=== PATIENT | male | born 1965 | race Caucasian/White ===

== ENCOUNTER 2016-09-02 23:06 | Inpatient (IN) ==
[2016-09-02] MEDS ORDERED: ONDANSETRON 4 MG/2 ML VIAL IV STA (23:38)
[2016-09-02] MEDS ORDERED: ASPIRIN 325 MG TABLET PO STA (23:38)
[2016-09-02] MEDS ORDERED: NITROGLYCERIN 2% OINT 1 INCH/GM PACK TOP STA (23:38)
[2016-09-02] MEDS ORDERED: MORPHINE 2 MG/1 ML SYRINGE IV STA (23:38)
[2016-09-02 23:50] LABS: Basophils # 0.1 10*3/uL (0.0-0.2); Basophils % 1.1 % (0.0-0.8); Eosinophils # 0.5 10*3/uL (0.0-0.87); Eosinophils % 4.9 % (0.00-10.9); Hematocrit 49.5 VOL% (42.0-52.0); Hemoglobin 17.3 GM/DL (14.0-18.0); Immature Granulocytes % 0.5 %; Immature Granulocytes Absolute 0.05 #; Lymphocytes # 3.6 10*3/uL (1.4-4.0); Mean Corpuscular HGB Conc 34.9 GM/DL (32-36); Mean Corpuscular Hemoglobin 33 PG (27-34); Mean Corpuscular Volume 95.2 FL (87-102); Mean Platelet Volume 12.1 FL (9.6-12.0); Monocytes % 10.6 % (1.7-12.7); Neutrophils # 4.2 10*3/uL (1.4-7.4); Neutrophils % 44.9 % (38.7-73.9); Platelet Count 247 T/CUMM (130-400); Red Cell Distribution Width 12.8 % (9.3-17.3); White Blood Count 9.4 T/CUMM (4-12)
[2016-09-02] MEDS ORDERED: ONDANSETRON 4 MG/2 ML VIAL ONE (23:53)
[2016-09-02] MEDS ORDERED: MORPHINE 2 MG/1 ML SYRINGE ONE (23:53)
[2016-09-02] MEDS ORDERED: NITROGLYCERIN 2% OINT 1 INCH/GM PACK TOP ONE (23:53)
[2016-09-02] MEDS ORDERED: ASPIRIN 325 MG TABLET ONE (23:53)
[2016-09-02 23:54] LABS: INR 1.1
--- NOTE | 2016-09-03 00:07 | Emergency Department Note ---
Humberto Slater Mantricia, am scribing for, and in the presence of, Adebayo Bey MD 23:43. Maida Slater Charles R, MD, personally performed the services described in this documentation, ascribed by Zachary Paul in my presence, and it is both accurate and complete . Arrival - Arrival Chief Complaint: Chest Pain ED Nursing Triage Note: C/O Chest pain. Onset earlier tonight. Pt was seen at [facility] for chest pain and was Dx with NSTEMI. Pt reports that he is currently painfree. Mode of Arrival: Stretcher Limitations: No Limitations Source: Patient Time Seen by Provider: 09/02/16 23:28 - History of Present Illness HPI Narrative: Pt is a 51 y/o white male arriving to the ED by EMS with c/o chest pain that onset earlier tonight. Pt reports moving a couch and he thought he pulled a muscle so he reported to [facility]. Pt was seen at [facility] for chest pain and was Dx with a NSTEMI. He states that he did not take his blood pressure medication this morning. He also denies smoking,N/V/D, and weakness when walking, but notes occasional ETOH consumption of beer. Pt reports he is currently pain-free. Onset (ago): hour(s) Consistency: now resolved Severity: mild Severity scale (1-10): 4 Allergies/Adverse Reactions: Allergies Allergy/AdvReac Type Severity Reaction Status Date / Time acetaminophen [From Percocet] AdvReac Intermediate Hallucinati Verified 23:14 ng Oxycodone [From Percocet] AdvReac Intermediate Hallucinati Verified 09/02/16 23: 14 ng Home Medications: Home Medications Medication Instructions Recorded Confirmed Type Unable To Obtain [Unable to Obtain] 09/02/16 09/02/16 History Review of System - Review of System 12 point system: reviewed and no additional remarkable complaints except as stated - Review of System Constitutional: Absent: chills, diaphoresis, fever Eyes: Absent: discharge, pain Head/Ears/Nose/Throat: Absent: earache Respiratory: Absent: cough Cardiovascular: Present: chest pain. Absent: palpitations, dyspnea on exertion Gastrointestinal: Absent: abdominal pain, nausea, vomiting Genitourinary male: Absent: dysuria Musculoskeletal: Absent: arm pain, back pain Skin: Absent: rash, lesions Neurological: Absent: headache, weakness Psychiatric: Absent: anxiety, depression Medical,Surgical,& Family Hx - Social History Smoking Status: Never smoker Frequency of Alcohol Use: None Type of Drug Use: None Exam Vital Signs: Vital Signs Temperature 98.7 F 09/02/16 23:06 Pulse Rate 64 09/02/16 23:06 Respiratory Rate 16 09/02/16 23:06 Blood Pressure 135/94 09/02/16 23:06 O2 Sat by Pulse Oximetry 98 09/02/16 23:06 - General General appearance: alert, in no apparent distress - Head Head exam: Present: atraumatic, normocephalic, normal inspection - Eye Eye exam: Present: normal appearance, PERRL, EOMI - ENT ENT exam: Present: normal exam, normal oropharynx, mucous membranes moist, TM's normal bilaterally, normal external ear exam - Neck Neck exam: Present: normal inspection, full ROM, trachea midline. Absent: tenderness - Chest Chest inspection: Present: normal inspection, symmetric chest wall rise. Absent : tenderness - Respiratory Respiratory exam: Present: normal lung sounds bilaterally - Cardiovascular Cardiovascular exam: Present: regular rate, normal rhythm, normal heart sounds - Abdominal Exam Abdominal exam: Present: soft, normal bowel sounds. Absent: distention, tenderness, guarding - Extremities Exam Extremities exam: Present: normal inspection, full ROM, normal capillary refill. Absent: tenderness, pedal edema - Back Exam Back exam: Present: normal inspection, full ROM. Absent: tenderness - Neurological Exam Neurological exam: Present: alert, oriented X3, CN II-XII intact, reflexes normal - Psychiatric Psychiatric exam: Present: normal affect, normal mood - Skin Skin exam: Present: warm, dry, intact, normal color Course - Consultations Consultation #1: Dr. Moore will admit patient Time: 00:06 Results - Labs CBC & BMP: 09/02/16 23:26 Lab Results: I have reviewed the patients labs Disposition Clinical Impression: Chest pain, Unstable angina pectoris, NSTEMI (non-ST elevated myocardial infarction) Case discussed with: patient, patient's family Disposition: Still a Patient Condition: Stable Time of Disposition: 00:07
[2016-09-03 00:17] LABS: Albumin 3.7 G/DL (3.4-5.0); Bilirubin,Total 0.6 MG/DL (0.2-1.0); Calcium 8.7 MG/DL (8.5-10.1); Magnesium 2.3 MG/DL (1.8-2.4); Osmolality,Calculated 279.4 MOS/KG (273-304); Potassium 4.4 MMOL/L (3.5-5.1); Total Protein 7.2 G/DL (6.4-8.3)
[2016-09-03] MEDS ORDERED: MAGNESIUM SULF RIDER 4 GM in PREMIX 1 EACH IV PRN (00:55)
[2016-09-03] MEDS ORDERED: SODIUM CHLORIDE 0.9% 1,000 ML IV SCH (00:55)
[2016-09-03] MEDS ORDERED: POTASSIUM CHLORIDE 20 MEQ TABLET PO PRN (00:55)
[2016-09-03] MEDS ORDERED: MAGNESIUM SULF RIDER 2 GM in PREMIX 1 EACH IV PRN ×3 (00:55→07:41)
[2016-09-03 01:33] LABS: Apearance,Urine CLEAR (Clear); Bacteria,Urine Occasional /HPF (Few); Bilirubin,Urine Negative (Negative); Blood, Urine Negative (Negative); Glucose,Urine (UA) Negative (Negative); Hyaline Casts,Urine 5 /LPF (0-3); Ketones,Urine Negative (Negative); Mucus,Urine Occasional /LPF (Occasional); Nitrite,Urine Negative (Negative); Protein,Urine Negative; RBC,Urine 1 /HPF (0-4); Squamous Epithelial Cell,Urine Occasional /HPF (0-10); Urine Color Yellow (Yellow); Urine Specific Gravity 1.028 (1.001-1.035); Urine Urobilinogen < 2.0 EU/DL (0.2-1.0); WBC,Urine 1 /HPF (0-6)
[2016-09-03 01:35] LABS: Barbiturates Screen,Urine Negative (Negative); Benzodiazepines Screen,Urine Negative (Negative); Cannabinoid Screen,Urine Negative (Negative); Opiate Screen,Urine Positive (Negative); Phencyclidine Screen,Urine Negative (Negative)
[2016-09-03 02:25] LABS: Basophils # 0.1 10*3/uL (0.0-0.2); Basophils % 0.8 % (0.0-0.8); Eosinophils # 0.4 10*3/uL (0.0-0.87); Eosinophils % 4.2 % (0.00-10.9); Hematocrit 47.3 VOL% (42.0-52.0); Hemoglobin 16.6 GM/DL (14.0-18.0); Immature Granulocytes % 0.7 %; Immature Granulocytes Absolute 0.07 #; Lymphocytes # 3.2 10*3/uL (1.4-4.0); Lymphocytes % 33.6 % (21.2-54.2); Mean Corpuscular HGB Conc 35.1 GM/DL (32-36); Mean Corpuscular Hemoglobin 33 PG (27-34); Mean Corpuscular Volume 95.2 FL (87-102); Mean Platelet Volume 11.5 FL (9.6-12.0); Monocytes # 1.1 10*3/uL (0.11-0.8); Monocytes % 11.9 % (1.7-12.7); Neutrophils # 4.7 10*3/uL (1.4-7.4); Neutrophils % 48.8 % (38.7-73.9); Platelet Count 237 T/CUMM (130-400); Red Blood Count 4.97 MC/CUMM (3.8-5.5); Red Cell Distribution Width 12.9 % (9.3-17.3); White Blood Count 9.6 T/CUMM (4-12)
[2016-09-03] MEDS ORDERED: ROSUVASTATIN 20 MG TABLET PO ONE ×2 (02:30→20:30)
[2016-09-03 03:08] LABS: CKMB % 10.9 %
[2016-09-03 03:12] LABS: Albumin 3.8 G/DL (3.4-5.0); Bilirubin,Total 0.6 MG/DL (0.2-1.0); Calcium 8.9 MG/DL (8.5-10.1); Magnesium 2.3 MG/DL (1.8-2.4); Osmolality,Calculated 274.7 MOS/KG (273-304); Potassium 4.8 MMOL/L (3.5-5.1); Risk Ratio 4.69; Thyroid Stimulating Hormone 6.29 uIU/ml (0.358-3.74); Total Protein 6.9 G/DL (6.4-8.3)
[2016-09-03 03:59] LABS: Troponin I Only 6.66 NG/ML (0.00-0.045)
[2016-09-03] MEDS: MORPHINE 2 MG/1 ML SYRINGE IV PRN ×2 (04:56→22:04)
[2016-09-03] MEDS: ONDANSETRON 4 MG/2 ML VIAL IV PRN ×2 (05:04→22:05)
[2016-09-03] MEDS: NITROGLYCERIN 2% OINT 1 INCH/GM PACK TOP SCH ×4 (05:23→23:20)
--- NOTE | 2016-09-03 06:17 | EKG Report ---
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
--- NOTE | 2016-09-03 06:18 | EKG Report ---
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
--- NOTE | 2016-09-03 06:29 | EKG Report ---
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
--- NOTE | 2016-09-03 07:00 | XRay Report ---
XR chest 1V portable Indication: Chest pain Comparison: 02 September 2016 at 9:10 PM Findings: The heart and mediastinum are normal in size and configuration. The pulmonary vascularity is normal in caliber. No lung infiltrates, effusions, pneumothorax or other abnormality is demonstrated. Impression: No acute findings or significant changes. PROCEDURE INTERPRETED AT [facility] DEPARTMENT OF RADIOLOGY Final Report Signed by: Dr. Cordell King
--- NOTE | 2016-09-03 07:19 | XRay Report ---
XR chest 2V Indication: Shortness of breath Comparison: 02 September 2016 Findings: The heart and mediastinum are stable in size and configuration. The pulmonary vascularity is normal in caliber. No lung infiltrates, effusions, pneumothorax or other abnormality is demonstrated. Impression: No acute cardiopulmonary disease. PROCEDURE INTERPRETED AT [facility] DEPARTMENT OF RADIOLOGY Final Report Signed by: Dr. Cordell King
[2016-09-03] MEDS ORDERED: POTASSIUM CHLORIDE RIDER 10 MEQ in PREMIX 1 EACH IV PRN ×2 (07:37→07:41)
[2016-09-03] MEDS ORDERED: diphenhydrAMINE CAP 25 MG CAPSULE PO ONE (07:41)
[2016-09-03] MEDS ORDERED: DIAZEPAM 5 MG TABLET PO ONE (07:41)
--- NOTE | 2016-09-03 07:42 | Cardiology History & Physical ---
Assessment and Plan (1) HTN (hypertension) Status: Acute Assessment and plan: 1. 51 year-old W exam oral tobacco use with hypertension and strong family history of CAD (brother at age 57, his father of heart attack in his late 70s) who is had intermittent episodes of chest pain over the last 5 days since lifting a heavy couch, which became associated with exertion during work yesterday p.m., with elevated troponin transferred here with non-STEMI 2. Chest pain resolved, but he has "a little throbbing" intermittently in his chest 3. / holosystolic murmur at the apex is noted suggesting mitral versus tricuspid regurgitation 4. Continuing Lovenox, statin, beta jany, and aspirin 5. Heart catheterization this morning is recommended. He is agreeable to this. We'll plan to use right groin access. I discussed with the patient arrest and benefits of heart catheterization including but not limited to: , stroke, heart attack, vascular damage, reaction to medicine or dye, bleeding requiring blood transfusion, failure the procedure, possible need for planned her emergency heart surgery. I have answered all the patient's questions and the patient is agreeable to proceed. Current Visit: Yes (2) NSTEMI (non-ST elevated myocardial infarction) Status: Acute Current Visit: Yes History of Present Illness Chief complaint: cp History of present illness: Mr. Rose is a 51 year old male with history of hypertension and oral tobacco use. He was lifting a couch with a family member 5 days ago, his phone number lost hold of the couch, and all the weight "went on me". He had chest discomfort associated with that. He has had chest pain off and on since that time. He has had it most minimal shortness of breath. He was having intermittently, but yesterday late afternoon it was occurring all during work when he did physical activity. This prompted her to the local emergency room where he is found to have elevated troponin and was transferred here for further care. He reports his chest pain went away but he has a heart "throbbing " off and on still. He has not had nausea vomiting or diaphoresis. At one point did radiate into his right shoulder. He has a strong family history of cardiac of CAD. Home Medications Medication Instructions Recorded Confirmed Type Unable To Obtain [Unable to Obtain] 09/02/16 09/02/16 History Allergies Allergy/AdvReac Type Severity Reaction Status Date / Time acetaminophen [From Percocet] AdvReac Intermediate Hallucinati Verified 23:14 ng Oxycodone [From Percocet] AdvReac Intermediate Hallucinati Verified 09/02/16 23: 14 ng Medical,Surgical,& Family Hx - Medical History Cardio: History of: Hypertension - Social History Smoking Status: Never smoker Frequency of Alcohol Use: Occasionally Type of Drug Use: None Cardiology Physical Exam - Constitutional Vitals: Vital Signs Temp Pulse Resp BP Pulse Ox 97.0 F L 66 20 145/99 98 09/03/16 07:36 09/03/16 07:36 09/03/16 07:36 09/03/16 07:36 09/03/16 07:36 Intake and Output 09/02/16 09/02/16 09/03/16 15:59 23:59 07:59 Other: # Voids 0 # Bowel Movements 0 Weight 92.561 kg Patient Weight 09/03/16 23:59 Weight 92.561 kg General appearance: normal weight, no acute distress - Head Head exam: Present: normal inspection, normocephalic, atraumatic - Neck Neck exam: Present: normal inspection - Respiratory Respiratory exam: Present: clear to auscultation bilaterally. Absent: stridor, wheezes - Cardiovascular Cardiovascular exam: Present: regular rate and rhythm, systolic murmur (2/6 systolic murmur at the apex which is holosystolic) - GI/Abdominal GI/Abdominal exam: Present: soft. Absent: tenderness, rebound - Extremities Exam Extremities exam: Absent: edema Result/EKG - Labs CBC & BMP: 09/03/16 02:18 09/03/16 02:18 Labs: Laboratory Results - last 24 hr 09/03/16 09/03/16 09/03/16 01:22 01:22 02:18 WBC 9.6 RBC 4.97 Hgb 16.6 Hct 47.3 MCV 95.2 MCH 33 MCHC 35.1 RDW 12.9 Plt Count 237 MPV 11.5 Neut % (Auto) 48.8 Lymph % (Auto) 33.6 Hill % (Auto) 11.9 Eos % (Auto) 4.2 Baso % (Auto) 0.8 Neut # (Auto) 4.7 Lymph # (Auto) 3.2 Hill # (Auto) 1.1 H Eos # (Auto) 0.4 Baso # (Auto) 0.1 Immature Gran % 0.7 Nucleated RBC % 0.0 Immature Gran # 0.07 Nucleated RBCs # 0.00 Sodium Potassium Chloride Carbon Dioxide Anion Gap BUN Creatinine GFR Calculation BUN/Creatinine Ratio Glucose Calculated Osmolality Calcium Magnesium Total Bilirubin AST ALT Alkaline Phosphatase Total Creatine Kinase CK-MB (CK-2) CK and CKMB Interp Troponin I B-Natriuretic Peptide Total Protein Albumin Globulin Albumin/Globulin Ratio Triglycerides Cholesterol LDL Cholesterol VLDL Cholesterol HDL Cholesterol Heart Disease Risk Ratio TSH 3rd Generation Urine Color Yellow Urine Appearance Clear Urine pH 5.0 Ur Specific Garrison 1.028 Urine Protein Negative Urine Glucose (UA) Negative Urine Ketones Negative Urine Blood Negative Urine Nitrate Negative Urine Bilirubin Negative Urine Urobilinogen < 2.0 H Urine Leukocytes Negative Urine RBC 1 Urine WBC 1 Ur Squamous Epith Cells Occasional Urine Bacteria Occasional Hyaline Casts 5 Urine Mucus Occasional Ur Culture Indicated? Not indicated Urine Opiates Screen Positive H Ur Barbiturates Screen Negative Ur Phencyclidine Scrn Negative U Amphetamine/Methamph Negative U Benzodiazepines Scrn Negative U Cocaine Metab Screen Negative U Cannabinoids Screen Negative 09/03/16 09/03/16 09/03/16 02:18 02:18 02:18 WBC RBC Hgb Hct MCV MCH MCHC RDW Plt Count MPV Neut % (Auto) Lymph % (Auto) Hill % (Auto) Eos % (Auto) Baso % (Auto) Neut # (Auto) Lymph # (Auto) Hill # (Auto) Eos # (Auto) Baso # (Auto) Immature Gran % Nucleated RBC % Immature Gran # Nucleated RBCs # Sodium 138 Potassium 4.8 Chloride 106 Carbon Dioxide 26 Anion Gap 10.8 BUN 16 Creatinine 1.30 GFR Calculation 78 BUN/Creatinine Ratio 12.00 Glucose 85 Calculated Osmolality 274.7 Calcium 8.9 Magnesium 2.3 Total Bilirubin 0.60 AST 60 H ALT 33 Alkaline Phosphatase 65 Total Creatine Kinase 383 H CK-MB (CK-2) 41.8 H CK and CKMB Interp 10.9 Troponin I 6.660 H D B-Natriuretic Peptide 368 H Total Protein 6.9 Albumin 3.8 Globulin 3.1 Albumin/Globulin Ratio 1.2 Triglycerides 105 Cholesterol 211 H LDL Cholesterol 152.0 VLDL Cholesterol 21.0 HDL Cholesterol 45 Heart Disease Risk Ratio 4.69 TSH 3rd Generation 6.290 H Urine Color Urine Appearance Urine pH Ur Specific Garrison Urine Protein Urine Glucose (UA) Urine Ketones Urine Blood Urine Nitrate Urine Bilirubin Urine Urobilinogen Urine Leukocytes Urine RBC Urine WBC Ur Squamous Epith Cells Urine Bacteria Hyaline Casts Urine Mucus Ur Culture Indicated? Urine Opiates Screen Ur Barbiturates Screen Ur Phencyclidine Scrn U Amphetamine/Methamph U Benzodiazepines Scrn U Cocaine Metab Screen U Cannabinoids Screen 09/03/16 05:56 WBC RBC Hgb Hct MCV MCH MCHC RDW Plt Count MPV Neut % (Auto) Lymph % (Auto) Hill % (Auto) Eos % (Auto) Baso % (Auto) Neut # (Auto) Lymph # (Auto) Hill # (Auto) Eos # (Auto) Baso # (Auto) Immature Gran % Nucleated RBC % Immature Gran # Nucleated RBCs # Sodium Potassium Chloride Carbon Dioxide Anion Gap BUN Creatinine GFR Calculation BUN/Creatinine Ratio Glucose Calculated Osmolality Calcium Magnesium Total Bilirubin AST ALT Alkaline Phosphatase Total Creatine Kinase CK-MB (CK-2) CK and CKMB Interp Troponin I 8.840 H D B-Natriuretic Peptide Total Protein Albumin Globulin Albumin/Globulin Ratio Triglycerides Cholesterol LDL Cholesterol VLDL Cholesterol HDL Cholesterol Heart Disease Risk Ratio TSH 3rd Generation Urine Color Urine Appearance Urine pH Ur Specific Garrison Urine Protein Urine Glucose (UA) Urine Ketones Urine Blood Urine Nitrate Urine Bilirubin Urine Urobilinogen Urine Leukocytes Urine RBC Urine WBC Ur Squamous Epith Cells Urine Bacteria Hyaline Casts Urine Mucus Ur Culture Indicated? Urine Opiates Screen Ur Barbiturates Screen Ur Phencyclidine Scrn U Amphetamine/Methamph U Benzodiazepines Scrn U Cocaine Metab Screen U Cannabinoids Screen
[2016-09-03] MEDS: PANTOPRAZOLE 40 MG TABLET PO SCH (08:18)
[2016-09-03] MEDS ORDERED: LIDOCAINE 1% 20 ML VIAL ONE (08:33)
[2016-09-03] MEDS ORDERED: HYDROmorphone 2 MG/1 ML VIAL ONE ×2 (08:36→10:15)
[2016-09-03] MEDS ORDERED: MIDAZOLAM 2 MG/2 ML VIAL ONE ×2 (08:36→09:32)
[2016-09-03] MEDS ORDERED: ASPIRIN EC 325 MG TABLET PO SCH (09:00)
[2016-09-03] MEDS ORDERED: METOPROLOL TARTRATE 25 MG TABLET PO SCH (09:00)
[2016-09-03] MEDS ORDERED: TIROFIBAN 5,000 MCG/100 ML PREMIX IV ONE (09:10)
[2016-09-03] MEDS ORDERED: ENOXAPARIN 60 MG/0.6 ML SYRINGE ONE ×2 (09:17→10:08)
[2016-09-03] MEDS ORDERED: TIROFIBAN 5,000 MCG/100 ML PREMIX IV SCH (09:19)
[2016-09-03] MEDS: ENOXAPARIN 100 MG/ML SYRINGE SUBCUT SCH ×2 (09:28→20:16)
[2016-09-03] MEDS ORDERED: diphenhydrAMINE 50 MG/1 ML VIAL ONE (09:41)
[2016-09-03] MEDS ORDERED: methylPREDNISolone SOD SUC 125 MG/2 ML VIAL ONE (10:19)
[2016-09-03] MEDS ORDERED: FAMOTIDINE 20 MG/2 ML VIAL IV ONE ×2 (10:22→10:34)
--- NOTE | 2016-09-03 10:50 | Cardiac Catheterization ---
Date of Procedure:: 09/03/16 Post-op diagnosis: same Procedure: Procedures performed: 1. Left heart catheterization 2. Coronary angiography 3. Left ventriculography 4. Failed attempt to cross proximal obtuse marginal occlusion 5. Right femoral arteriotomy with Angio-Seal device Brief clinical summary: Mr. Vera is a 51-year-old with non-STEMI and no previous chronic history. Description of procedure: After obtaining informed consent, the right groin was prepped and draped in the usual sterile fashion. Next a short 6 Irish sheath was placed in the right femoral artery using a modified Seldinger technique, after the patient received IV sedation and local anesthetic. Next a JL4 catheter was advanced over a guidewire under fluoroscopic guidance, and was engaged to the left coronary artery after which angiography was performed in multiple views. This was then removed over a wire, and a JR4 catheter was advanced in similar fashion was engaged the right coronary artery after which angiography was performed in multiple views. Next a bent pigtail catheter was advanced into the left ventricle, where hemodynamic measurements were obtained, left ventriculography was performed. Percutaneous coronary intervention wasn't performed as described below. After intervention, and angiogram of the sheath showed the sheath was inserted in the right common femoral artery in a vessel suitable for closure. Hemostasis was obtained with Angio-Seal device with no residual bleeding. He was transferred from the cathead worker in good condition without complication. Percutaneous coronary intervention: An EBU 3.5 guiding catheter was advanced is a bit oversized but I was able to engage left coronary artery was some difficulty and applied adequate support. Next a Prowater wire was advanced but I could not cross the proximal obtuse marginal occlusion. I then changed to a long Prowater wire which I advanced the distal circumflex with only moderate difficulty. I then advanced a 1.5 x 20 [id number] balloon [id number] and changed out for a PT Graphix angled long wire. Attempt to cross the occlusion without success. This was then removed, and I advanced a long Prowater with a venture catheter and try to directed down the OM without success. I felt further details were futile and to avoid further dye or radiation exposure no further attempts were made. Coronary angiography: The left main coronary artery is normal developed and free of disease. Left anterior descending artery is of average caliber and there is a 70-80% high mid LAD involving a 90% ostial diagonal lesion ( bifurcation lesion with large diagonal) there are no other significant diagonals the LAD wraps around the apex. The circumflex gives off a large OM1 with proximal occlusion. There is a tiny OM 2 occluded proximally, and there is a large than average on 3 branch which and the termination the vessel. The OM's filled by left to left collaterals. The right coronary artery is a dominant vessel and is averaging caliber. There is 60% mid disease, as well as a distal occlusion. The PDA seems to fill slowly by [id number] collaterals, and the at least average caliber PL fills by right to right collaterals. Left ventricular: Left ventricle Is normal in size and there is borderline overall LV systolic function with EF proximal to 45-50%. There is moderate inferior hypokinesis. Mitral regurgitation is difficult to assess this seems to be approximately 2+. Impression: 1. Borderline to mildly reduced overall LV systolic function with ejection fraction is be 45-50% with moderate inferior hypokinesis 2. Probably at least 2+ mitral regurgitation (difficult study) 3. Right dominant system 4. Three-vessel coronary artery disease as detailed above including but not limited to: A. 70-80% mid LAD stenosis involving a 90% ostial diagonal lesion (bifurcation lesion to large diagonal) B. 60% mid circumflex stenosis with occluded proximal OM (likely culprit, which is a long vessel nearly average in caliber) filling by left to left collaterals. C. 60% mid RCA disease with distal RCA occlusion; the PDA fills by left-to- right collaterals, and a fairly large posterior lateral fills by right to right collaterals 5. Failed attempt to open OM occlusion using a venture catheter oh (very tortuous anatomy) Recommendation discussion: I believe Mr. Vera is best served with bypass surgery. An echocardiogram has been ordered to evaluate his apical murmur. He'll be a candidate for significant ischemic mitral regurgitation giving compromise of all 3 vessels. I discussed the case with Dr. Be in the cathead worker. I will discontinue Aggrastat with a bottle is out and he'll be watched the CCU. Anesthesia: minimal conscious sedation Surgeon / Physician: Galileo Moore Independent Jeweler: other Estimated blood loss: minimal Specimens: none sent Condition: stable Disposition: floor - Medications / Follow-up
[2016-09-03] MEDS: ROSUVASTATIN 20 MG TABLET PO SCH (11:45)
[2016-09-03] MEDS: CARVEDILOL 3.125 MG TABLET PO SCH ×2 (11:46→20:16)
[2016-09-03] MEDS: ASPIRIN EC 81 MG TABLET PO SCH (11:46)
[2016-09-03 12:51] LABS: CKMB % 13.4 %
[2016-09-03 12:54] LABS: Troponin I Only 12.7 NG/ML (0.00-0.045)
--- NOTE | 2016-09-03 13:33 | EKG Report ---
Stationary ECG Study 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
--- NOTE | 2016-09-03 15:31 | ECHO Report ---
[facility] Exam Date: 09/03/2016 11:59 Referring Physician: Technologist: Ana Luisa Okeefe RDCS Age: 51 Ht (in): 73 Wt (lb): 204 Gender: M Exam Location: [facility] Echo Indications: Chest pain, unspecified, Non-ST elevation (NSTEMI) myocardial infarction, Essential (primary) hypertension, Elevated troponin, 2/6 holocystolic murmur BP: 146 / 100 HR: 67 Rhythm: Sinus Technical Quality: IMPRESSIONS 1-2+ left atrial enlargement Borderline to mildly reduced LV systolic function with ejection fraction estimated 45-50% with inferior hypokinesis Aortic sclerosis without stenosis 1-2+ aortic regurgitation 2+ eccentric mitral regurgitation 1+ tricuspid regurgitation with RV systolic pressure 28 mmHg plus RAP MEASUREMENTS (Male / Female) Normal Values 2D ECHO LV Diastolic Diameter PLAX 4.3 cm 4.2 - 5.9 / 3.9 - 5.3 cm LV Systolic Diameter PLAX 3.0 cm LV Fractional Shortening PLAX 29.7 % IVS Diastolic Thickness 1.0 cm 0.6 - 1.0 / 0.6 - 0.9 cm LVPW Diastolic Thickness 1.0 cm 0.6 - 1.0 / 0.6 - 0.9 cm RV Internal Dim ED PLAX 3.8 cm Aortic Root Diameter 3.1 cm LA Systolic Diameter LX 4.8 cm 3.0 - 4.0 / 2.7 - 3.8 cm DOPPLER TR Peak Velocity 263.0 cm/s TR Peak Gradient 27.7 mmHg FINDINGS Left Ventricle Normal left ventricular cavity size. Normal left ventricular wall thickness. Left ventricular ejection fraction is estimated at 50 %. Right Ventricle The right ventricle is normal in size and function. Right Atrium The right atrium is mildly enlarged. Left Atrium The left atrium is mildly enlarged. Mitral Valve Morphologically normal mitral valve. Mild mitral valve regurgitation. Aortic Valve Aortic valve sclerosis without stenosis. Trace to mild aortic valve regurgitation. Tricuspid Valve Morphologically normal tricuspid valve. Trace to mild tricuspid valve regurgitation. Tricuspid regurgitation velocities suggest a PAP of 38 mmHg. Pulmonic Valve Morphologically normal pulmonic valve without significant stenosis. There is no pulmonic regurgitation. Pericardium Normal pericardium without effusion. Aorta Normal ascending aorta dimension. Galileo Moore (Electronically Signed) Final Date: 03 September 2016 15:18
[2016-09-03 17:54] LABS: CKMB % 12.9 %
[2016-09-03 17:55] LABS: Troponin I Only 11.2 NG/ML (0.00-0.045)
[2016-09-04] MEDS: MORPHINE 2 MG/1 ML SYRINGE IV PRN ×2 (02:05→20:36)
[2016-09-04] MEDS: ONDANSETRON 4 MG/2 ML VIAL IV PRN ×2 (02:06→20:41)
[2016-09-04 05:14] LABS: Basophils % 0.1 % (0.0-0.8); Hematocrit 47.7 VOL% (42.0-52.0); Hemoglobin 16.5 GM/DL (14.0-18.0); Immature Granulocytes % 0.5 %; Lymphocytes # 1.8 10*3/uL (1.4-4.0); Lymphocytes % 8.5 % (21.2-54.2); Mean Corpuscular HGB Conc 34.6 GM/DL (32-36); Mean Corpuscular Hemoglobin 33 PG (27-34); Mean Corpuscular Volume 95.8 FL (87-102); Mean Platelet Volume 11.7 FL (9.6-12.0); Monocytes # 1.2 10*3/uL (0.11-0.8); Monocytes % 5.6 % (1.7-12.7); Neutrophils # 18.3 10*3/uL (1.4-7.4); Neutrophils % 85.3 % (38.7-73.9); Platelet Count 221 T/CUMM (130-400); Red Blood Count 4.98 MC/CUMM (3.8-5.5); Red Cell Distribution Width 12.8 % (9.3-17.3); White Blood Count 21.4 T/CUMM (4-12)
[2016-09-04 05:49] LABS: Magnesium 2.4 MG/DL (1.8-2.4); Osmolality,Calculated 279.7 MOS/KG (273-304); Potassium 4.6 MMOL/L (3.5-5.1)
[2016-09-04 05:54] LABS: CKMB % 12.3 %
[2016-09-04 05:57] LABS: Troponin I Only 6.77 NG/ML (0.00-0.045)
[2016-09-04 06:01] LABS: Total Cells Counted 100
[2016-09-04] MEDS: NITROGLYCERIN 2% OINT 1 INCH/GM PACK TOP SCH ×3 (06:10→17:15)
[2016-09-04 06:12] LABS: Band Neutrophils 4 % (0-10); Eosinophils 1 % (0-10); Lymphocytes 7 % (20-55); Segmented Neutrophils 83 % (50-85)
[2016-09-04 06:13] LABS: Anisocytosis 1+; Hypochromasia 1+; Platelet Estimate Normal
--- NOTE | 2016-09-04 07:31 | EKG Report ---
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
[2016-09-04] MEDS: ASPIRIN EC 81 MG TABLET PO SCH (08:16)
[2016-09-04] MEDS: CARVEDILOL 3.125 MG TABLET PO SCH ×2 (08:16→21:01)
[2016-09-04] MEDS: PANTOPRAZOLE 40 MG TABLET PO SCH (08:17)
[2016-09-04] MEDS: ENOXAPARIN 100 MG/ML SYRINGE SUBCUT SCH (08:18)
--- NOTE | 2016-09-04 09:18 | Cardiothoracic Progress Note ---
Cardiothoracic Subjective Interval history: Patient is a 51-year-old man who presents with acute onset of substernal chest discomfort. Urgent cardiac catheterization demonstrated severe three-vessel coronary disease with a totally occluded obtuse marginal coronary which may represent the infarct vessel. Patient's troponins peaked at around 12 and are trending downward. This should represent a relatively small injury and with the patient's significant additional coronary disease he probably is best treated with coronary bypass surgery. I discussed this in some detail with him and he agrees and we have tentatively planned surgery for Tuesday. Patient is to remain in the hospital in the interim which will give him some time to recover from his recent injury. From my standpoint I think he could be transferred out of the coronary care unit. Exam (Progress Note) - Constitutional Vitals: Period Temp Pulse Resp BP Sys/Scruggs Pulse Ox Last 24 Hr 97.2 F-98.1 F 67-93 11- 115-152/74-115 90-97 Result/EKG - Labs CBC & BMP: 09/04/16 05:05 09/04/16 05:06 Labs: Laboratory Results - last 24 hr 09/03/16 09/03/16 09/04/16 11:36 17:16 05:05 WBC 21.4 H D RBC 4.98 Hgb 16.5 Hct 47.7 MCV 95.8 MCH 33 MCHC 34.6 RDW 12.8 Plt Count 221 MPV 11.7 Neut % (Auto) 85.3 H Lymph % (Auto) 8.5 L [place] % (Auto) 5.6 Eos % (Auto) 0.0 Baso % (Auto) 0.1 Neut # (Auto) 18.3 H Lymph # (Auto) 1.8 [place] # (Auto) 1.2 H Eos # (Auto) 0.0 Baso # (Auto) 0.0 Total Counted 100 Immature Gran % 0.5 Nucleated RBC % 0.0 Immature Gran # 0.10 Segmented Neutrophils 83 Band Neutrophils 4 Lymphocytes 7 L Monocytes 5 Eosinophils 1 Nucleated RBCs # 0.00 Platelet Estimate Normal Hypochromasia 1+ Anisocytosis 1+ Sodium Potassium Chloride Carbon Dioxide Anion Gap BUN Creatinine GFR Calculation BUN/Creatinine Ratio Glucose Calculated Osmolality Calcium Magnesium Total Creatine Kinase 437 H 377 H CK-MB (CK-2) 58.6 H D 48.6 H D CK and CKMB Interp 13.4 12.9 Troponin I 12.700 H D 11.200 H 09/04/16 09/04/16 05:06 05:06 WBC RBC Hgb Hct MCV MCH MCHC RDW Plt Count MPV Neut % (Auto) Lymph % (Auto) [place] % (Auto) Eos % (Auto) Baso % (Auto) Neut # (Auto) Lymph # (Auto) [place] # (Auto) Eos # (Auto) Baso # (Auto) Total Counted Immature Gran % Nucleated RBC % Immature Gran # Segmented Neutrophils Band Neutrophils Lymphocytes Monocytes Eosinophils Nucleated RBCs # Platelet Estimate Hypochromasia Anisocytosis Sodium 138 Potassium 4.6 Chloride 105 Carbon Dioxide 23 Anion Gap 14.6 BUN 17 Creatinine 1.30 GFR Calculation 78 BUN/Creatinine Ratio 13.00 Glucose 148 H Calculated Osmolality 279.7 Calcium 9.0 Magnesium 2.4 Total Creatine Kinase 243 D CK-MB (CK-2) 29.8 H D CK and CKMB Interp 12.3 Troponin I 6.770 H D Specialty Discharge - Follow Up or Referrals
[2016-09-04] MEDS ORDERED: DEXTROSE 50% 25 GM/50 ML VIAL IV PRN (09:19)
[2016-09-04] MEDS ORDERED: GLUCAGON 1 MG VIAL IM PRN (09:19)
--- NOTE | 2016-09-04 11:22 | Cardiology Progress Note ---
Assessment and Plan (1) HTN (hypertension) Status: Acute Assessment and plan: 1. 51 year-old W exam oral tobacco use with hypertension and strong family history of CAD (brother at age 57, his father of heart attack in his late 70s) who is had intermittent episodes of chest pain over the last 5 days since lifting a heavy couch, which became associated with exertion during work yesterday p.m., with elevated troponin transferred here with non-STEMI 2. Chest pain resolved, but he has "a little throbbing" intermittently in his chest 3. 2/6 holosystolic murmur at the apex is noted suggesting mitral versus tricuspid regurgitation 4. Continuing Lovenox, statin, beta jany, and aspirin 5. Heart catheterization this morning is recommended. He is agreeable to this. We'll plan to use right groin access. I discussed with the patient arrest and benefits of heart catheterization including but not limited to: , stroke, heart attack, vascular damage, reaction to medicine or dye, bleeding requiring blood transfusion, failure the procedure, possible need for planned her emergency heart surgery. I have answered all the patient's questions and the patient is agreeable to proceed. September 04, 2016: 1. Status post non-STEMI, now chest pain-free with severe three-vessel coronary artery disease and borderline to mildly reduced LV systolic function with ejection fraction 45-50% 2. Continue low-dose beta jany and high-intensity statin and aspirin therapy 3. He was stable overnight and the unit; transferred to telemetry 4. CV surgery is planned CABG for next week Current Visit: Yes (2) NSTEMI (non-ST elevated myocardial infarction) Status: Acute Current Visit: Yes Cardiology - PN: Subj Interval history: Mr. Vera says that he had no trouble at night and is anxious to be transferred to telemetry. He has had no dysrhythmia chest pain or shortness of breath. He has no complaints his right groin access site. He is discussed surgery with Dr. Be already. Exam (Progress Note) - Constitutional Vitals: Period Temp Pulse Resp BP Sys/Scruggs Pulse Ox Last 24 Hr 97.2 F-98.1 F 67-93 11-22 115-152/74-115 90-97 General appearance: normal weight, no acute distress - Head Head exam: Present: normal inspection, normocephalic, atraumatic - Neck Neck exam: Present: normal inspection - Respiratory Respiratory exam: Present: clear to auscultation bilaterally. Absent: rhonchi, stridor, wheezes - Cardiovascular Cardiovascular exam: Present: regular rate and rhythm. Absent: diastolic murmur , rubs, systolic murmur - GI/Abdominal GI/Abdominal exam: Present: soft. Absent: tenderness - Extremities Exam Extremities exam: Present: other (right groin access without bleeding bruit or hematoma). Absent: edema - Neurological Exam Neurological exam: Present: alert, oriented X3, normal gait - Psychiatric Psychiatric exam: Present: normal affect Result/EKG - Labs CBC & BMP: 09/04/16 05:05 09/04/16 05:06 Labs: Laboratory Results - last 24 hr 09/03/16 09/03/16 09/04/16 11:36 17:16 05:05 WBC 21.4 H D RBC 4.98 Hgb 16.5 Hct 47.7 MCV 95.8 MCH 33 MCHC 34.6 RDW 12.8 Plt Count 221 MPV 11.7 Neut % (Auto) 85.3 H Lymph % (Auto) 8.5 L [place] % (Auto) 5.6 Eos % (Auto) 0.0 Baso % (Auto) 0.1 Neut # (Auto) 18.3 H Lymph # (Auto) 1.8 [place] # (Auto) 1.2 H Eos # (Auto) 0.0 Baso # (Auto) 0.0 Total Counted 100 Immature Gran % 0.5 Nucleated RBC % 0.0 Immature Gran # 0.10 Segmented Neutrophils 83 Band Neutrophils 4 Lymphocytes 7 L Monocytes 5 Eosinophils 1 Nucleated RBCs # 0.00 Platelet Estimate Normal Hypochromasia 1+ Anisocytosis 1+ Sodium Potassium Chloride Carbon Dioxide Anion Gap BUN Creatinine GFR Calculation BUN/Creatinine Ratio Glucose Calculated Osmolality Calcium Magnesium Total Creatine Kinase 437 H 377 H CK-MB (CK-2) 58.6 H D 48.6 H D CK and CKMB Interp 13.4 12.9 Troponin I 12.700 H D 11.200 H 09/04/16 09/04/16 05:06 05:06 WBC RBC Hgb Hct MCV MCH MCHC RDW Plt Count MPV Neut % (Auto) Lymph % (Auto) [place] % (Auto) Eos % (Auto) Baso % (Auto) Neut # (Auto) Lymph # (Auto) [place] # (Auto) Eos # (Auto) Baso # (Auto) Total Counted Immature Gran % Nucleated RBC % Immature Gran # Segmented Neutrophils Band Neutrophils Lymphocytes Monocytes Eosinophils Nucleated RBCs # Platelet Estimate Hypochromasia Anisocytosis Sodium 138 Potassium 4.6 Chloride 105 Carbon Dioxide 23 Anion Gap 14.6 BUN 17 Creatinine 1.30 GFR Calculation 78 BUN/Creatinine Ratio 13.00 Glucose 148 H Calculated Osmolality 279.7 Calcium 9.0 Magnesium 2.4 Total Creatine Kinase 243 D CK-MB (CK-2) 29.8 H D CK and CKMB Interp 12.3 Troponin I 6.770 H D Quality Measures - VTE Contraindication to Pharmacological VTE Prophylaxis: High Risk of Bleeding Specialty Discharge - Follow Up or Referrals
[2016-09-04] MEDS: SODIUM CHLORIDE 0.9% 1,000 ML IV SCH (13:24)
[2016-09-04] MEDS: ENOXAPARIN 40 MG/0.4 ML SYRINGE SUBCUT SCH (13:24)
[2016-09-04] MEDS: ROSUVASTATIN 20 MG TABLET PO SCH (13:29)
[2016-09-04] MEDS: VALSARTAN 80 MG TABLET PO SCH ×2 (13:30→21:01)
[2016-09-04] MEDS: CHLORHEXIDINE 0.12% ORAL RINSE 60 ML BOTTLE SWISH/SPIT SCH (21:02)
[2016-09-04] MEDS ORDERED: ASPIRIN 325 MG TABLET PO ONE (22:48)
[2016-09-04] MEDS ORDERED: MORPHINE 2 MG/1 ML SYRINGE IV ONE (22:48)
[2016-09-05] MEDS: NITROGLYCERIN 2% OINT 1 INCH/GM PACK TOP SCH ×4 (00:16→18:02)
[2016-09-05 06:39] LABS: Calcium 8.3 MG/DL (8.5-10.1); Magnesium 2.1 MG/DL (1.8-2.4); Potassium 4.6 MMOL/L (3.5-5.1)
[2016-09-05] MEDS: CARVEDILOL 3.125 MG TABLET PO SCH ×2 (08:12→21:05)
[2016-09-05] MEDS: ASPIRIN EC 81 MG TABLET PO SCH (08:12)
[2016-09-05] MEDS: PANTOPRAZOLE 40 MG TABLET PO SCH (08:12)
[2016-09-05] MEDS: ROSUVASTATIN 20 MG TABLET PO SCH (08:12)
[2016-09-05] MEDS: VALSARTAN 80 MG TABLET PO SCH ×2 (08:12→21:05)
[2016-09-05] MEDS: MORPHINE 2 MG/1 ML SYRINGE IV PRN ×4 (08:12→22:44)
--- NOTE | 2016-09-05 08:28 | Cardiothoracic Progress Note ---
Cardiothoracic Subjective Interval history: Patient is ready for surgery on Tuesday. Exam (Progress Note) - Constitutional Vitals: Period Temp Pulse Resp BP Sys/Scruggs Pulse Ox Last 24 Hr 96.8 F-98.3 F 62-91 17-20 136-167/95-112 96-98 Result/EKG - Labs CBC & BMP: 09/04/16 05:05 09/05/16 05:09 Labs: Laboratory Results - last 24 hr 09/05/16 05:09 Sodium 143 Potassium 4.6 Chloride 108 H Carbon Dioxide 28 Anion Gap 11.6 BUN 14 Creatinine 1.20 GFR Calculation 87 BUN/Creatinine Ratio 11.00 Glucose 86 Calculated Osmolality 284.0 Calcium 8.3 L Magnesium 2.1 Quality Measures - VTE Contraindication to Pharmacological VTE Prophylaxis: High Risk of Bleeding Specialty Discharge - Follow Up or Referrals
[2016-09-05] MEDS: IBUPROFEN 600 MG TABLET PO PRN (08:38)
--- NOTE | 2016-09-05 09:05 | Cardiology Progress Note ---
Assessment and Plan (1) HTN (hypertension) Status: Acute Assessment and plan: 1. 51 year-old W exam oral tobacco use with hypertension and strong family history of CAD (brother at age 57, his father of heart attack in his late 70s) who is had intermittent episodes of chest pain over the last 5 days since lifting a heavy couch, which became associated with exertion during work yesterday p.m., with elevated troponin transferred here with non-STEMI 2. Chest pain resolved, but he has "a little throbbing" intermittently in his chest 3. 2 holosystolic murmur at the apex is noted suggesting mitral versus tricuspid regurgitation 4. Continuing Lovenox, statin, beta jany, and aspirin 5. Heart catheterization this morning is recommended. He is agreeable to this. We'll plan to use right groin access. I discussed with the patient arrest and benefits of heart catheterization including but not limited to: , stroke, heart attack, vascular damage, reaction to medicine or dye, bleeding requiring blood transfusion, failure the procedure, possible need for planned her emergency heart surgery. I have answered all the patient's questions and the patient is agreeable to proceed. September 04, 2016: 1. Status post non-STEMI, now chest pain-free with severe three-vessel coronary artery disease and borderline to mildly reduced LV systolic function with ejection fraction 45-50% 2. Continue low-dose beta jany and high-intensity statin and aspirin therapy 3. He was stable overnight and the unit; transferred to telemetry 4. CV surgery is planned CABG for next week 09/05/2016: 1. Status post non-STEMI with three-vessel CAD, chest pain-free with EF 45-50% a catheterization 2. Persistent headache which has improved since discontinuing nitroglycerin yesterday 3. Hemodynamic was stable 4. Continue statin therapy as well as low-dose beta jany and baby aspirin 5. Awaiting CABG next week 6. Gradually increase walking home (he has not walked in the halls yet) Current Visit: Yes (2) NSTEMI (non-ST elevated myocardial infarction) Status: Acute Current Visit: Yes Cardiology - PN: Subj Interval history: Extremities doing well other than a headache which has improved since his nitroglycerin was removed yesterday for persistent headaches frontal area. He is not having any chest, shortness of breath palpitations or dizziness. Exam (Progress Note) - Constitutional Vitals: Period Temp Pulse Resp BP Sys/Scruggs Pulse Ox Last 24 Hr 96.8 F-98.3 F 62-91 18-20 136-167/95-112 96-98 General appearance: normal weight, no acute distress - Head Head exam: Present: normal inspection, normocephalic, atraumatic - Neck Neck exam: Present: normal inspection - Respiratory Respiratory exam: Present: clear to auscultation bilaterally. Absent: stridor, wheezes - Cardiovascular Cardiovascular exam: Present: regular rate and rhythm, systolic murmur. Absent : diastolic murmur, rubs - GI/Abdominal GI/Abdominal exam: Present: soft. Absent: tenderness - Extremities Exam Extremities exam: Absent: edema Result/EKG - Labs CBC & BMP: 09/04/16 05:05 09/05/16 05:09 Labs: Laboratory Results - last 24 hr 09/05/16 05:09 Sodium 143 Potassium 4.6 Chloride 108 H Carbon Dioxide 28 Anion Gap 11.6 BUN 14 Creatinine 1.20 GFR Calculation 87 BUN/Creatinine Ratio 11.00 Glucose 86 Calculated Osmolality 284.0 Calcium 8.3 L Magnesium 2.1 Quality Measures - VTE Contraindication to Pharmacological VTE Prophylaxis: High Risk of Bleeding Specialty Discharge - Follow Up or Referrals
[2016-09-05] MEDS: SODIUM CHLORIDE 0.9% 1,000 ML IV SCH (11:01)
[2016-09-05] MEDS: ENOXAPARIN 40 MG/0.4 ML SYRINGE SUBCUT SCH (11:05)
[2016-09-05] MEDS: CHLORHEXIDINE 0.12% ORAL RINSE 60 ML BOTTLE SWISH/SPIT SCH ×2 (11:05→21:07)
[2016-09-06] MEDS: NITROGLYCERIN 2% OINT 1 INCH/GM PACK TOP SCH ×5 (01:42→23:56)
[2016-09-06 05:47] LABS: Calcium 8.8 MG/DL (8.5-10.1); Osmolality,Calculated 277.5 MOS/KG (273-304); Potassium 4.3 MMOL/L (3.5-5.1)
--- NOTE | 2016-09-06 06:12 | Cardiothoracic Progress Note ---
Cardiothoracic Subjective Interval history: Patient ready for surgery on Tuesday. Exam (Progress Note) - Constitutional Vitals: Period Temp Pulse Resp BP Sys/Scruggs Pulse Ox Last 24 Hr 97.8 F-99.2 F 74-90 18-22 145-178/92-112 90-98 Result/EKG - Labs CBC & BMP: 09/04/16 05:05 09/06/16 04:33 Labs: Laboratory Results - last 24 hr 09/05/16 09/06/16 05:09 04:33 Sodium 143 139 Potassium 4.6 4.3 Chloride 108 H 103 Carbon Dioxide 28 27 Anion Gap 11.6 13.3 BUN 14 14 Creatinine 1.20 1.20 GFR Calculation 87 87 BUN/Creatinine Ratio 11.00 11.00 Glucose 86 92 Calculated Osmolality 284.0 277.5 Calcium 8.3 L 8.8 Magnesium 2.1 2.0 Quality Measures - VTE Contraindication to Pharmacological VTE Prophylaxis: High Risk of Bleeding Specialty Discharge - Follow Up or Referrals
--- NOTE | 2016-09-06 07:42 | XRay Report ---
XR chest 2V Indication: Coronary artery disease. Comparison: Chest x-ray 09/03/2016 Technique: PA and lateral chest x-ray was performed. Findings: The heart size is within normal limits. The mediastinal contour demonstrates no significant abnormality. The lungs are clear. Bones and soft tissues demonstrate no acute abnormality. Impression: 1. No active cardiopulmonary disease. 09/06/2016 7:39 AM PROCEDURE INTERPRETED AT [facility] DEPARTMENT OF RADIOLOGY Final Report Signed by: Dr. To Doll
[2016-09-06] MEDS: ASPIRIN EC 81 MG TABLET PO SCH (08:41)
[2016-09-06] MEDS: VALSARTAN 80 MG TABLET PO SCH ×2 (08:42→20:07)
[2016-09-06] MEDS: PANTOPRAZOLE 40 MG TABLET PO SCH (08:42)
[2016-09-06] MEDS: CARVEDILOL 3.125 MG TABLET PO SCH (08:42)
[2016-09-06] MEDS: ROSUVASTATIN 20 MG TABLET PO SCH (08:42)
[2016-09-06] MEDS: CHLORHEXIDINE 0.12% ORAL RINSE 60 ML BOTTLE SWISH/SPIT SCH ×2 (08:43→20:08)
[2016-09-06 09:19] LABS: Basophils # 0.1 10*3/uL (0.0-0.2); Basophils % 0.5 % (0.0-0.8); Eosinophils # 0.3 10*3/uL (0.0-0.87); Eosinophils % 2.8 % (0.00-10.9); Hematocrit 49.6 VOL% (42.0-52.0); Hemoglobin 17.2 GM/DL (14.0-18.0); Immature Granulocytes % 0.6 %; Immature Granulocytes Absolute 0.06 #; Lymphocytes # 2.1 10*3/uL (1.4-4.0); Lymphocytes % 20.5 % (21.2-54.2); Mean Corpuscular HGB Conc 34.7 GM/DL (32-36); Mean Corpuscular Hemoglobin 33 PG (27-34); Mean Corpuscular Volume 95.8 FL (87-102); Monocytes # 1.1 10*3/uL (0.11-0.8); Monocytes % 10.7 % (1.7-12.7); Neutrophils # 6.6 10*3/uL (1.4-7.4); Neutrophils % 64.9 % (38.7-73.9); Platelet Count 226 T/CUMM (130-400); Red Blood Count 5.18 MC/CUMM (3.8-5.5); Red Cell Distribution Width 12.5 % (9.3-17.3); White Blood Count 10.2 T/CUMM (4-12)
[2016-09-06] MEDS: SODIUM CHLORIDE 0.9% 1,000 ML IV SCH (09:45)
[2016-09-06] MEDS: ENOXAPARIN 40 MG/0.4 ML SYRINGE SUBCUT SCH ×2 (10:42→10:52)
[2016-09-06] MEDS: IBUPROFEN 600 MG TABLET PO PRN ×2 (12:19→19:39)
--- NOTE | 2016-09-06 14:04 | Cardiology Progress Note ---
<Diane Rodriguez - Last Filed: 09/06/16 14:23> Assessment and Plan (1) NSTEMI (non-ST elevated myocardial infarction) Status: Acute Assessment and plan: Patient is status post non-ST elevated myocardial infarction. After undergoing left heart catheterization with Dr. Moore he was noted to have triple-vessel disease. Dr. Be has been consulted and plans for CABG Tuesday. We will continue current plan of care at this time with beta-jany, lipid- lowering agent and aspirin. Further plan and addendum to follow per Dr. Jean. Current Visit: Yes (2) HTN (hypertension) Status: Acute Assessment and plan: I have increased patient's beta jany due to suboptimally controlled blood pressure. Will continue to adjust patient's medications as needed. Further plan and addendum to follow per Dr. Jean. 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 Rose, 51 year-old white male with history of oral tobacco use, hypertension and strong family history of CAD (brother at age 57, his father of heart attack in his late 70s) who has had intermittent episodes of chest pain over the last 5 days since lifting a heavy couch. He was transferred here from [facility] with non-STEMI. He underwent left heart catheterization the following impressions noted: Impression: 1. Borderline to mildly reduced overall LV systolic function with ejection fraction is be 45-50% with moderate inferior hypokinesis 2. Probably at least 2+ mitral regurgitation (difficult study) 3. Right dominant system 4. Three-vessel coronary artery disease as detailed above including but not limited to: A. 70-80% mid LAD stenosis involving a 90% ostial diagonal lesion ( bifurcation lesion to large diagonal) B. 60% mid circumflex stenosis with occluded proximal OM (likely culprit, which is a long vessel nearly average in caliber) filling by left to left collaterals. C. 60% mid RCA disease with distal RCA occlusion; the PDA fills by left-to- right collaterals, and a fairly large posterior lateral fills by right to right collaterals 5. Failed attempt to open OM occlusion using a venture catheter (very tortuous anatomy) Patient was transferred back to the telemetry unit in stable condition post heart catheterization. Dr. Be was then consulted, plan for CABG Tuesday. Echocardiogram was obtained to evaluate his atypical murmur. This revealed 1-2+ left atrial enlargement. Mildly reduced LV systolic dysfunction with ejection fraction of 45-50% with inferior hypokinesis. 1-2+ aortic regurgitation, 2+ eccentric mitral regurgitation and 1+ tricuspid regurgitation with RV systolic pressure of 20 mmHg. Patient is done well post heart catheterization without any complications. Right groin is soft without bleeding , hematoma and bruit. Distal pulses 2+. Patient denies chest pain, heaviness and tightness. He also denies shortness of breath and heart palpitations/heart racing. Labs are unremarkable this morning. Vital signs are stable. We will continue to monitor patient closely on telemetry and plan for CABG Tuesday with Dr. Be. Further plan and addendum to follow per Dr. Jean. Exam (Progress Note) - Constitutional Vitals: Period Temp Pulse Resp BP Sys/Scruggs Pulse Ox Last 24 Hr 97.9 F-99.3 F 74-90 18-22 140-178/85-112 90-98 General appearance: normal weight, no acute distress - Head Head exam: Present: normal inspection, normocephalic, atraumatic - Neck Neck exam: Present: normal inspection - Respiratory Respiratory exam: Present: clear to auscultation bilaterally. Absent: accessory muscle use, chest wall tenderness, rales, rhonchi, stridor, wheezes - Cardiovascular Cardiovascular exam: Present: regular rate and rhythm, systolic murmur. Absent : gallop, rubs - GI/Abdominal GI/Abdominal exam: Present: normal bowel sounds, soft. Absent: distended, firm , mass, tenderness - Extremities Exam Extremities exam: Present: normal inspection, normal capillary refill, other ( Normal upper and lower extremity pulses). Absent: calf tenderness, edema - Neurological Exam Neurological exam: Present: alert, oriented X3, normal gait - Psychiatric Psychiatric exam: Present: normal affect, normal mood - Skin Skin exam: Present: normal color, warm, dry. Absent: cyanosis Result/EKG - Labs CBC & BMP: 09/06/16 08:58 09/06/16 04:33 Lab Results: I have reviewed the past 24 hour labs Labs: Laboratory Results - last 24 hr 09/06/16 09/06/16 09/06/16 04:33 08:58 08:58 WBC 10.2 D RBC 5.18 Hgb 17.2 Hct 49.6 MCV 95.8 MCH 33 MCHC 34.7 RDW 12.5 Plt Count 226 MPV 12.0 Neut % (Auto) 64.9 Lymph % (Auto) 20.5 L [place] % (Auto) 10.7 Eos % (Auto) 2.8 Baso % (Auto) 0.5 Neut # (Auto) 6.6 Lymph # (Auto) 2.1 [place] # (Auto) 1.1 H Eos # (Auto) 0.3 Baso # (Auto) 0.1 Immature Gran % 0.6 Nucleated RBC % 0.0 Immature Gran # 0.06 Nucleated RBCs # 0.00 Sodium 139 Potassium 4.3 Chloride 103 Carbon Dioxide 27 Anion Gap 13.3 BUN 14 Creatinine 1.20 GFR Calculation 87 BUN/Creatinine Ratio 11.00 Glucose 92 Hemoglobin A1c 5.4 Calculated Osmolality 277.5 Calcium 8.8 Magnesium 2.0 Quality Measures - VTE Contraindication to Pharmacological VTE Prophylaxis: High Risk of Bleeding Specialty Discharge - Follow Up or Referrals <Glenny Jean - Last Filed: 09/06/16 20:50> Cardiology - PN: Subj Interval history: I personally interviewed and examined the patient, reviewed the chart and discussed medical decision-making with practitioner Michael. I have read this note and agree with the findings herein. We will increase the patient's beta jany and ARB. I will add hydralazine as needed for uncontrolled hypertension. Exam (Progress Note) - Constitutional Vitals: Period Temp Pulse Resp BP Sys/Scruggs Pulse Ox Last 24 Hr 97.5 F-99.3 F 68-90 18-20 140-178/85-112 90-100 Result/EKG - Labs CBC & BMP: 09/06/16 08:58 09/06/16 04:33 Labs: Laboratory Results - last 24 hr 09/06/16 09/06/16 09/06/16 04:33 08:58 08:58 WBC 10.2 D RBC 5.18 Hgb 17.2 Hct 49.6 MCV 95.8 MCH 33 MCHC 34.7 RDW 12.5 Plt Count 226 MPV 12.0 Neut % (Auto) 64.9 Lymph % (Auto) 20.5 L [place] % (Auto) 10.7 Eos % (Auto) 2.8 Baso % (Auto) 0.5 Neut # (Auto) 6.6 Lymph # (Auto) 2.1 [place] # (Auto) 1.1 H Eos # (Auto) 0.3 Baso # (Auto) 0.1 Immature Gran % 0.6 Nucleated RBC % 0.0 Immature Gran # 0.06 Nucleated RBCs # 0.00 Sodium 139 Potassium 4.3 Chloride 103 Carbon Dioxide 27 Anion Gap 13.3 BUN 14 Creatinine 1.20 GFR Calculation 87 BUN/Creatinine Ratio 11.00 Glucose 92 Hemoglobin A1c 5.4 Calculated Osmolality 277.5 Calcium 8.8 Magnesium 2.0
[2016-09-06] MEDS ORDERED: LACTULOSE 20 GM/30 ML UDCUP PO PRN (15:00)
[2016-09-06] MEDS: CARVEDILOL 6.25 MG TABLET PO SCH (20:07)
[2016-09-06] MEDS ORDERED: hydrALAZINE 20 MG/1 ML VIAL IV PRN (20:49)
[2016-09-07] MEDS: NITROGLYCERIN 2% OINT 1 INCH/GM PACK TOP SCH ×4 (05:01→23:54)
[2016-09-07 05:26] LABS: Basophils # 0.1 10*3/uL (0.0-0.2); Basophils % 0.6 % (0.0-0.8); Eosinophils # 0.6 10*3/uL (0.0-0.87); Eosinophils % 6.6 % (0.00-10.9); Hematocrit 47.4 VOL% (42.0-52.0); Hemoglobin 16.6 GM/DL (14.0-18.0); Lymphocytes # 2.6 10*3/uL (1.4-4.0); Lymphocytes % 26.7 % (21.2-54.2); Mean Corpuscular Hemoglobin 33 PG (27-34); Mean Platelet Volume 12.5 FL (9.6-12.0); Monocytes # 1.2 10*3/uL (0.11-0.8); Neutrophils # 5.1 10*3/uL (1.4-7.4); Neutrophils % 53.1 % (38.7-73.9); Platelet Count 221 T/CUMM (130-400); Red Blood Count 5.04 MC/CUMM (3.8-5.5); Red Cell Distribution Width 12.4 % (9.3-17.3); White Blood Count 9.6 T/CUMM (4-12)
[2016-09-07 05:51] LABS: Calcium 8.8 MG/DL (8.5-10.1); Magnesium 2.2 MG/DL (1.8-2.4); Osmolality,Calculated 277.4 MOS/KG (273-304); Potassium 4.5 MMOL/L (3.5-5.1)
--- NOTE | 2016-09-07 06:34 | Cardiothoracic Progress Note ---
Cardiothoracic Subjective Interval history: Patient ready for surgery in the morning. Exam (Progress Note) - Constitutional Vitals: Period Temp Pulse Resp BP Sys/Scruggs Pulse Ox Last 24 Hr 96.8 F-99.3 F 68-79 16-20 138-172/85-112 94-100 Result/EKG - Labs CBC & BMP: 09/07/16 04:34 09/07/16 04:35 Labs: Laboratory Results - last 24 hr 09/06/16 09/06/16 09/07/16 08:58 08:58 04:34 WBC 10.2 D 9.6 RBC 5.18 5.04 Hgb 17.2 16.6 Hct 49.6 47.4 MCV 95.8 94.0 MCH 33 33 MCHC 34.7 35.0 RDW 12.5 12.4 Plt Count 226 221 MPV 12.0 12.5 H Neut % (Auto) 64.9 53.1 Lymph % (Auto) 20.5 L 26.7 [place] % (Auto) 10.7 12.0 Eos % (Auto) 2.8 6.6 Baso % (Auto) 0.5 0.6 Neut # (Auto) 6.6 5.1 Lymph # (Auto) 2.1 2.6 [place] # (Auto) 1.1 H 1.2 H Eos # (Auto) 0.3 0.6 Baso # (Auto) 0.1 0.1 Immature Gran % 0.6 1.0 Nucleated RBC % 0.0 0.0 Immature Gran # 0.06 0.10 Nucleated RBCs # 0.00 0.00 Sodium Potassium Chloride Carbon Dioxide Anion Gap BUN Creatinine GFR Calculation BUN/Creatinine Ratio Glucose Hemoglobin A1c 5.4 Calculated Osmolality Calcium Magnesium 09/07/16 04:35 WBC RBC Hgb Hct MCV MCH MCHC RDW Plt Count MPV Neut % (Auto) Lymph % (Auto) [place] % (Auto) Eos % (Auto) Baso % (Auto) Neut # (Auto) Lymph # (Auto) [place] # (Auto) Eos # (Auto) Baso # (Auto) Immature Gran % Nucleated RBC % Immature Gran # Nucleated RBCs # Sodium 140 Potassium 4.5 Chloride 105 Carbon Dioxide 28 Anion Gap 11.5 BUN 13 Creatinine 1.10 GFR Calculation 96 BUN/Creatinine Ratio 11.00 Glucose 89 Hemoglobin A1c Calculated Osmolality 277.4 Calcium 8.8 Magnesium 2.2 Quality Measures - VTE Contraindication to Pharmacological VTE Prophylaxis: High Risk of Bleeding Specialty Discharge - Follow Up or Referrals
[2016-09-07] MEDS ORDERED: LORazepam 1 MG TABLET PO ONE (08:11)
[2016-09-07] MEDS ORDERED: PANTOPRAZOLE 40 MG TABLET PO ONE (08:11)
[2016-09-07] MEDS: VALSARTAN 80 MG TABLET PO SCH (08:31)
[2016-09-07] MEDS: ROSUVASTATIN 20 MG TABLET PO SCH (08:31)
[2016-09-07] MEDS: CARVEDILOL 6.25 MG TABLET PO SCH (08:32)
[2016-09-07] MEDS: ASPIRIN EC 81 MG TABLET PO SCH (08:32)
[2016-09-07] MEDS: PANTOPRAZOLE 40 MG TABLET PO SCH (08:32)
[2016-09-07] MEDS: CHLORHEXIDINE 0.12% ORAL RINSE 60 ML BOTTLE SWISH/SPIT SCH ×2 (08:37→20:45)
[2016-09-07] MEDS ORDERED: CEFUROXIME INJ 1,500 MG in SODIUM CHLORIDE 0.9% 100 ML IV ONE (09:19)
[2016-09-07] MEDS: SODIUM CHLORIDE 0.9% 1,000 ML IV SCH (09:28)
[2016-09-07] MEDS: ENOXAPARIN 40 MG/0.4 ML SYRINGE SUBCUT SCH (10:30)
--- NOTE | 2016-09-07 10:31 | Cardiology Progress Note ---
Assessment and Plan (1) Coronary artery disease Status: Acute Assessment and plan: He is scheduled to undergo coronary artery bypass grafting tomorrow with Dr. Be. Current Visit: Yes (2) NSTEMI (non-ST elevated myocardial infarction) Status: Resolved Current Visit: Yes (3) HTN (hypertension) Status: Chronic Assessment and plan: We will continue to adjust his antihypertensives. Current Visit: Yes Cardiology - PN: Subj Interval history: Evening was uneventful. He denies any chest pain or shortness. He is doing all. Blood pressure is better controlled. Exam (Progress Note) - Constitutional Vitals: Period Temp Pulse Resp BP Sys/Scruggs Pulse Ox Last 24 Hr 96.8 F-98.4 F 68-79 16-20 138-172/85-112 94-100 Exam: General appearance: normal weight, no acute distress - Head Head exam: Present: normal inspection, normocephalic, atraumatic. Absent: hematoma, laceration - Eye Eye exam: Present: EOMI. Absent: conjunctival injection, nystagmus, periorbital swelling, scleral icterus, laceration to eyelids Pupils: Present: PERRL. Absent: constricted, dilated, fixed, irregular, unequal - ENT ENT exam: Present: normal exam, normal external ear exam - Neck Neck exam: Present: normal inspection. Absent: lymphadenopathy, meningismus, tenderness, thyromegaly - Respiratory Respiratory exam: Present: clear to auscultation bilaterally. Absent: accessory muscle use, chest wall tenderness - Cardiovascular Cardiovascular exam: Present: regular rate and rhythm. Absent: carotid bruit, gallop, JVD, rubs - GI/Abdominal GI/Abdominal exam: Present: normal bowel sounds, soft. Absent: distended, firm , guarding, hernia, mass, tenderness, rebound. - Extremities Exam Extremities exam: Present: normal inspection, normal capillary refill. Absent: calf tenderness, edema - Back Exam Back exam: Present: normal inspection. Absent: muscle spasm, vertebral tenderness - Neurological Exam Neurological exam: Present: alert, oriented X3, grossly intact without resting or intention tremor - Psychiatric Psychiatric exam: Present: normal affect, normal mood - Skin Skin exam: Present: normal color, warm, dry, intact. Absent: cyanosis, diaphoretic, rash, urticaria Result/EKG - Labs CBC & BMP: 09/07/16 04:34 09/07/16 04:35 Lab Results: I have reviewed the past 24 hour labs Labs: Laboratory Results - last 24 hr 09/07/16 09/07/16 09/07/16 04:34 04:35 04:35 WBC 9.6 RBC 5.04 Hgb 16.6 Hct 47.4 MCV 94.0 MCH 33 MCHC 35.0 RDW 12.4 Plt Count 221 MPV 12.5 H Neut % (Auto) 53.1 Lymph % (Auto) 26.7 [place] % (Auto) 12.0 Eos % (Auto) 6.6 Baso % (Auto) 0.6 Neut # (Auto) 5.1 Lymph # (Auto) 2.6 [place] # (Auto) 1.2 H Eos # (Auto) 0.6 Baso # (Auto) 0.1 Immature Gran % 1.0 Nucleated RBC % 0.0 Immature Gran # 0.10 Nucleated RBCs # 0.00 Sodium 140 Potassium 4.5 Chloride 105 Carbon Dioxide 28 Anion Gap 11.5 BUN 13 Creatinine 1.10 GFR Calculation 96 BUN/Creatinine Ratio 11.00 Glucose 89 Calculated Osmolality 277.4 Calcium 8.8 Magnesium 2.2 Blood Type A POSITIVE Antibody Screen Negative Crossmatch See Detail 09/07/16 Unknown WBC RBC Hgb Hct MCV MCH MCHC RDW Plt Count MPV Neut % (Auto) Lymph % (Auto) [place] % (Auto) Eos % (Auto) Baso % (Auto) Neut # (Auto) Lymph # (Auto) [place] # (Auto) Eos # (Auto) Baso # (Auto) Immature Gran % Nucleated RBC % Immature Gran # Nucleated RBCs # Sodium Potassium Chloride Carbon Dioxide Anion Gap BUN Creatinine GFR Calculation BUN/Creatinine Ratio Glucose Calculated Osmolality Calcium Magnesium Blood Type A POSITIVE Antibody Screen Crossmatch Quality Measures - VTE Contraindication to Pharmacological VTE Prophylaxis: High Risk of Bleeding Specialty Discharge - Follow Up or Referrals
[2016-09-07] MEDS: CHLORHEXIDINE 4% SOLN 118 ML BOTTLE TOP SCH ×3 (12:09→20:45)
[2016-09-07] MEDS: IBUPROFEN 600 MG TABLET PO PRN (12:34)
[2016-09-07] MEDS: CARVEDILOL 12.5 MG TABLET PO SCH (20:42)
[2016-09-08 04:39] LABS: ABG Base Excess -0.4 MMOL/L (-2.5-2.5); ABG HCO3 21.3 MMOL/L (20-26); ABG Oxygen Saturation 97.8 % (95-100); ABG PCO2 28.7 MM HG (35-48); ABG PH 7.489 (7.35-7.45); ABG PO2 98.9 MM HG (80-95); ABG TCO2 22.2 MMOL/L (23-27); Allen Test Positive; Pt O2 Delivery Device Room Air
[2016-09-08] MEDS ORDERED: PAPAVERINE 60 MG/2 ML VIAL ONE (04:44)
[2016-09-08] MEDS ORDERED: TISSUE ADHESIVE 1 EACH APPLICATOR TOP ONE (04:44)
[2016-09-08] MEDS ORDERED: VANCOMYCIN 1,000 MG VIAL ONE (04:45)
[2016-09-08] MEDS: CHLORHEXIDINE 0.12% ORAL RINSE 60 ML BOTTLE SWISH/SPIT SCH ×3 (05:06→20:47)
[2016-09-08] MEDS: CHLORHEXIDINE 4% SOLN 118 ML BOTTLE TOP SCH ×2 (05:06→10:21)
[2016-09-08] MEDS ORDERED: FAMOTIDINE 20 MG TABLET PO ONE (05:30)
[2016-09-08] MEDS ORDERED: LORazepam 1 MG TABLET PO ONE (05:30)
[2016-09-08 05:37] LABS: Basophils # 0.1 10*3/uL (0.0-0.2); Basophils % 0.5 % (0.0-0.8); Eosinophils # 0.7 10*3/uL (0.0-0.87); Eosinophils % 6.6 % (0.00-10.9); Hematocrit 51.7 VOL% (42.0-52.0); Hemoglobin 17.7 GM/DL (14.0-18.0); Immature Granulocytes % 1.3 %; Immature Granulocytes Absolute 0.14 #; Lymphocytes # 2.9 10*3/uL (1.4-4.0); Lymphocytes % 26.8 % (21.2-54.2); Mean Corpuscular HGB Conc 34.2 GM/DL (32-36); Mean Corpuscular Hemoglobin 33 PG (27-34); Mean Corpuscular Volume 95.9 FL (87-102); Monocytes # 1.2 10*3/uL (0.11-0.8); Monocytes % 11.4 % (1.7-12.7); Neutrophils # 5.7 10*3/uL (1.4-7.4); Neutrophils % 53.4 % (38.7-73.9); Platelet Count 272 T/CUMM (130-400); Red Blood Count 5.39 MC/CUMM (3.8-5.5); Red Cell Distribution Width 12.2 % (9.3-17.3); White Blood Count 10.7 T/CUMM (4-12)
[2016-09-08] MEDS: PANTOPRAZOLE 40 MG TABLET PO SCH ×2 (05:46→10:21)
[2016-09-08] MEDS: CARVEDILOL 12.5 MG TABLET PO SCH ×2 (05:46→10:20)
[2016-09-08] MEDS: NITROGLYCERIN 2% OINT 1 INCH/GM PACK TOP SCH ×2 (05:46→13:16)
[2016-09-08] MEDS: ROSUVASTATIN 20 MG TABLET PO SCH ×2 (05:46→10:20)
[2016-09-08] MEDS: VALSARTAN 80 MG TABLET PO SCH ×2 (05:46→10:20)
[2016-09-08 05:48] LABS: PT Patient Result 10.6 SECS; Partial Thromboplastin Time 30.1 SECS (0-40)
[2016-09-08] MEDS ORDERED: CEFUROXIME INJ 1,500 MG in SODIUM CHLORIDE 0.9% 100 ML IV ONE (06:00)
[2016-09-08 06:14] LABS: Calcium 8.8 MG/DL (8.5-10.1); Magnesium 2.2 MG/DL (1.8-2.4); Osmolality,Calculated 278.4 MOS/KG (273-304); Potassium 4.3 MMOL/L (3.5-5.1)
[2016-09-08] MEDS ORDERED: LIDOCAINE 1% 5 ML VIAL ONE (06:46)
[2016-09-08] MEDS ORDERED: PHENYLEPHRINE 1 MG/10 ML SYRINGE IV ONE (06:46)
[2016-09-08] MEDS ORDERED: VECURONIUM 10 MG VIAL IV ONE (06:46)
[2016-09-08] MEDS ORDERED: AMIODARONE 150 MG/3 ML VIAL ONE (06:46)
[2016-09-08] MEDS ORDERED: ETOMIDATE 20 MG/10 ML VIAL IV ONE (06:46)
[2016-09-08] MEDS ORDERED: AMINOCAPROIC ACID 5,000 MG/20 ML VIAL IV ONE (06:46)
[2016-09-08] MEDS ORDERED: CALCIUM CHLORIDE 1,000 MG/10 ML SYRINGE IV ONE ×2 (06:46→09:45)
[2016-09-08] MEDS ORDERED: MINERAL OIL/PETROLATUM OPH OINT 3.5 GM TUBE ONE (06:46)
[2016-09-08 07:28] LABS: ABG Base Excess -1.7 MMOL/L (-2.5-2.5); ABG Oxygen Saturation 99.6 % (95-100); ABG PCO2 36.3 MM HG (35-48); ABG TCO2 18.7 MMOL/L (23-27); Glucose Heart Surgery 105 MG/DL (74-106); Hematocrit Heart Surgery 50.2 PERCENT (42-52); Hemoglobin Heart Surgery 16.4 G/DL (14.0-18.0); Ionized Calcium Arterial 1.15 MMOL/L (1.21-1.46); PCO2 Patient Temp Arterial 36.3 MMHG; Patient Temperature 37 CELCIUS; Potassium Heart/CVR 3.8 MMOL/L (3.5-5.1); Sodium Heart/CVR 135 MMOL/L (135-145)
[2016-09-08 07:47] LABS: Apearance,Urine CLEAR (Clear); Bilirubin,Urine Negative (Negative); Blood, Urine Small mg/dL (Negative); Glucose,Urine (UA) Negative (Negative); Ketones,Urine Negative (Negative); Mucus,Urine Occasional /LPF (Occasional); Nitrite,Urine Negative (Negative); Protein,Urine Negative; RBC,Urine 1 /HPF (0-4); Urine Color Yellow (Yellow); WBC,Urine <1 /HPF (0-6)
--- NOTE | 2016-09-08 07:52 | Anesthesia Procedures ---
Anesthesia Procedures - Arterial Line Consent obtained arterial line: written consent Time out performed arterial line: Yes Size (Gauge): 20 Technique used arterial line: guide wire technique Post-Procedure: line sutured into place, dry sterile dressing placed Patient tolerated procedure arterial line: well Complications art line: none Site: right, radial (no comps)
--- NOTE | 2016-09-08 07:54 | Anesthesia Procedures ---
Anesthesia Procedures - Central Venous Insert Monitors Applied: pulse oximetry, BP cuff, oxygen via MSBT: pulse oximetry, EKG, BP cuff, oxygen via Procedure: after sterile technique was performed as outlined above, , ultrasound guidance was used to identify vessel, 16G introducer needle was passed into vessel under direct visualizatio, triple lumen catheter was passed over guidewire without difficulty, catheter sutured into place and the ports flushed with NS/hepflush, sterlie dressing applied including the antibiotic disc , vital signs were stable throughout procedure, no apparent complications were noted, CXR to be obtained and read Ultrasound used: identify patency vessel, visualize needle entry to vessel Vein Cannulated: right internal juglar, other (Chloroprep, MSTB, el well, no comps)
[2016-09-08 08:56] LABS: Hematocrit Heart Surgery 36.7 PERCENT (42-52); Hemoglobin Heart Surgery 11.9 G/DL (14.0-18.0); PH Patient Temp Venous 7.402; PO2 Patient Temp Venous 41.3 MM HG; Potassium Heart/CVR 4.5 MMOL/L (3.5-5.1); VBG HCO3 22.5 MEQ/L (24-28); VBG Oxygen Saturation 81.8 %; VBG PCO2 39.6 MMHG (41-51); VBG PH 7.373; VBG PO2 47.5 MMHG (17-40)
[2016-09-08 09:27] LABS: Hematocrit Heart Surgery 39.6 PERCENT (42-52); Hemoglobin Heart Surgery 12.9 G/DL (14.0-18.0); PCO2 Patient Temp Venous 32.4 MM HG; PH Patient Temp Venous 7.423; PO2 Patient Temp Venous 39.4 MM HG; Potassium Heart/CVR 5.4 MMOL/L (3.5-5.1); VBG Base Excess -2.6 MEQ/L (0-4); VBG Oxygen Saturation 82.9 %; VBG PCO2 37.4 MMHG (41-51); VBG PH 7.38; VBG PO2 48.5 MMHG (17-40)
[2016-09-08] MEDS ORDERED: EPINEPHrine 1 MG/10 ML SYRINGE ONE (09:45)
[2016-09-08] MEDS ORDERED: ALBUMIN 5% 12.5 GM/250 ML VIAL IV ONE (09:45)
[2016-09-08] MEDS ORDERED: SODIUM BICARBONATE 50 MEQ/50 ML SYRINGE IV ONE ×2 (09:45→11:00)
[2016-09-08] MEDS ORDERED: POTASSIUM CHLORIDE RIDER 100 ML IV ONE (09:45)
[2016-09-08] MEDS ORDERED: LIDOCAINE 100 MG/5 ML SYRINGE ONE (09:45)
[2016-09-08] MEDS ORDERED: ATROPINE 1 MG/10 ML SYRINGE ONE (09:45)
[2016-09-08] MEDS ORDERED: NITROPRUSSIDE 50 MG/2 ML VIAL ONE (09:46)
[2016-09-08] MEDS ORDERED: PHENYLEPHRINE DRIP 40 MG/250 ML PREMIX IV ONE (09:46)
[2016-09-08] MEDS ORDERED: HEPARIN/NACL 0.9% 2 UNITS/ML 500 ML IV ONE (09:53)
[2016-09-08 10:10] LABS: Hematocrit Heart Surgery 35.9 PERCENT (42-52); Hemoglobin Heart Surgery 11.6 G/DL (14.0-18.0); PCO2 Patient Temp Venous 35.1 MM HG; PH Patient Temp Venous 7.407; PO2 Patient Temp Venous 36.6 MM HG; VBG Base Excess -2.1 MEQ/L (0-4); VBG HCO3 22.2 MEQ/L (24-28); VBG PCO2 36.8 MMHG (41-51); VBG PH 7.393; VBG PO2 39.3 MMHG (17-40)
[2016-09-08] MEDS: ASPIRIN EC 81 MG TABLET PO SCH (10:20)
[2016-09-08] MEDS: SODIUM CHLORIDE 0.9% 1,000 ML IV SCH (10:21)
[2016-09-08 10:59] LABS: ABG Base Excess -3.2 MMOL/L (-2.5-2.5); ABG HCO3 21.8 MMOL/L (20-26); ABG Oxygen Saturation 99.2 % (95-100); ABG PCO2 40.9 MM HG (35-48); ABG PH 7.345 (7.35-7.45); ABG TCO2 19.7 MMOL/L (23-27); Glucose Heart Surgery 159 MG/DL (74-106); Hematocrit Heart Surgery 39.6 PERCENT (42-52); Hemoglobin Heart Surgery 12.9 G/DL (14.0-18.0); Ionized Calcium Arterial 1.32 MMOL/L (1.21-1.46); PCO2 Patient Temp Arterial 40.9 MMHG; PH Patient Temp Arterial 7.345; Patient Temperature 37 CELCIUS; Potassium Heart/CVR 3.7 MMOL/L (3.5-5.1); Sodium Heart/CVR 132 MMOL/L (135-145)
[2016-09-08] MEDS ORDERED: MANNITOL 12.5 GM/50 ML VIAL IV ONE (11:00)
[2016-09-08] MEDS ORDERED: PROTAMINE SULFATE 250 MG/25 ML VIAL IV ONE (11:00)
[2016-09-08] MEDS ORDERED: HEPARIN 10,000 UNIT/10 ML VIAL ONE (11:00)
[2016-09-08] MEDS ORDERED: DEXTROSE 5% KCL 20 MEQ 20 MEQ/1,000 ML BAG IV ONE (11:00)
[2016-09-08] MEDS ORDERED: ALBUMIN 25% 25 GM/100 ML VIAL IV ONE (11:00)
[2016-09-08] MEDS ORDERED: MAGNESIUM SULFATE 1 GM/2 ML VIAL ONE (11:00)
[2016-09-08] MEDS ORDERED: methylPREDNISolone SOD SUC 1,000 MG/8 ML VIAL ONE (11:00)
[2016-09-08] MEDS ORDERED: PHENYLEPHRINE DRIP 20 MG/250 ML PREMIX IV ONE (11:00)
[2016-09-08] MEDS ORDERED: FUROSEMIDE 20 MG/2 ML VIAL ONE (11:00)
[2016-09-08] MEDS ORDERED: THROMBIN TOPICAL (RECOMBINANT) 5,000 UNIT VIAL TOP ONE (11:19)
[2016-09-08] MEDS ORDERED: AMIODARONE 450 MG/9 ML VIAL IV ONE (11:44)
[2016-09-08] MEDS ORDERED: MIDAZOLAM 10 MG/2 ML VIAL IV PRN (12:04)
[2016-09-08] MEDS ORDERED: CALCIUM CHLORIDE 1,000 MG/10 ML SYRINGE IV PRN (12:04)
[2016-09-08] MEDS ORDERED: PHENYLEPHRINE DRIP 40 MG/250 ML PREMIX IV PRN (12:04)
[2016-09-08] MEDS ORDERED: LACTATED RINGERS 250 ML IV PRN (12:04)
[2016-09-08] MEDS ORDERED: INSULIN REGULAR 100 UNIT/ML IV PRN (12:04)
[2016-09-08] MEDS ORDERED: NITROPRUSSIDE 100 MG in DEXTROSE 5% 250 ML IV PRN (12:04)
[2016-09-08] MEDS ORDERED: ACETAMINOPHEN 650 MG SUPP RECTAL PRN (12:04)
[2016-09-08] MEDS ORDERED: DEXTROSE 50% 25 GM/50 ML VIAL IV PRN ×2 (12:04)
[2016-09-08] MEDS ORDERED: MAGNESIUM SULF RIDER 4 GM in PREMIX 1 EACH IV PRN (12:04)
[2016-09-08] MEDS ORDERED: VECURONIUM 10 MG VIAL IV PRN (12:04)
[2016-09-08] MEDS ORDERED: ONDANSETRON 4 MG/2 ML VIAL IV PRN (12:04)
[2016-09-08] MEDS ORDERED: MAGNESIUM SULF RIDER 2 GM in PREMIX 1 EACH IV PRN (12:04)
[2016-09-08] MEDS ORDERED: INSULIN REGULAR 100 UNIT/ML IV ONE (12:04)
[2016-09-08] MEDS: SODIUM CHLORIDE 0.45% 1,000 ML IV SCH (12:05)
[2016-09-08] MEDS ORDERED: MIDAZOLAM 10 MG/2 ML VIAL ONE ×2 (12:05→12:06)
[2016-09-08] MEDS ORDERED: SEVOFLURANE 1 UNIT/15 MINUTE INH ONE (12:05)
[2016-09-08] MEDS ORDERED: SUFentanil 250 MCG/5 ML AMP ONE (12:05)
[2016-09-08] MEDS ORDERED: SODIUM CHLORIDE 0.9% 250 ML IV ONE (12:06)
[2016-09-08] MEDS ORDERED: LACTATED RINGERS 1,000 ML IV ONE (12:06)
[2016-09-08] MEDS ORDERED: SODIUM CHLORIDE 0.9% 1,000 ML IV ONE (12:06)
[2016-09-08] MEDS ORDERED: PROTAMINE SULFATE 50 MG/5 ML VIAL IV ONE ×2 (12:11→13:08)
--- NOTE | 2016-09-08 12:12 | Operative Note ---
Date of procedure: 09/08/16 Pre-op diagnosis: Coronary artery disease Post-op diagnosis: same Procedure: Procedure: Coronary bypass grafting 4 with a left internal mammary graft to the anterior descending coronary artery saphenous vein grafts to the diagonal circumflex marginal and the right posterior lateral coronary artery. Findings: Patient is a 51-year-old man who presented with an acute myocardial infarction and cardiac catheterization demonstrating critical three-vessel coronary disease. The patient was referred for bypass surgery after recovery from his infarction. This time of surgery left ventricular function was noted to be essentially within normal limits. An internal mammary graft was placed to the anterior descending coronary artery and saphenous vein grafts to the diagonal to the circumflex marginal and to the right posterior lateral coronary arteries. Patient tolerated the procedure well and returned to recovery in satisfactory condition. All distal vessels were of adequate size and free of disease at the site of anastomosis. Procedure: Patient was brought to the operating room placed on the operating table in the supine position. After satisfactory induction of general anesthesia the chest abdomen and legs were prepped and draped in sterile fashion. Greater saphenous vein was harvested from each lower leg prepared is an arterial graft. Incisions in the leg were closed with 3-0 subcutaneous Monocryl and 3-0 subcuticular Monocryl. Standard sternotomy incision was made and the sternum was divided and the heart suspended in a pericardial cradle. Left internal mammary artery was dissected free and prepared as an arterial graft. Patient was prepared for cardiopulmonary bypass with systemic heparinization cannulation of the ascending aorta and right atrium. Cardiopulmonary bypass was begun in the aorta was crossclamped and the heart arrested with cardioplegia solution injected into the aortic root. Heart was protected during the period of crossclamping with topical saline slush. Distal anastomoses were constructed as noted above and then the aorta was unclamped reestablishing cardiac action. Proximal anastomoses were constructed between the ascending aorta and the inflow end of the saphenous vein grafts. Following completion of these the patient was weaned from cardiopulmonary bypass without difficulty. Heparin effect was reversed with protamine and decannulation carried out with a defects in the ascending aorta and right atrium closed with 3 -0 Prolene. Operative field was inspected for hemostasis and this was considered adequate the incision was closed with interrupted stainless steel wire and the sternum 0 Monopril in the presternal fascia and 3-0 subcuticular Monocryl. Chest tubes were left in the left hemithorax and 2 chest tubes in the anterior mediastinum and all were brought out through separate stab incisions. Sterile dressings were applied the patient was returned to recovery in satisfactory condition. Anesthesia: FRANKLIN Surgeon / Physician: Silviano Be Estimated blood loss: other (Unable to determine because of cardiopulmonary bypass) Condition: stable Disposition: ICU Results - Labs CBC & BMP: 09/08/16 10:55 09/08/16 05:00 Discharge Plan - Discharge Medications No Action No Known Home Medications [No Known Home Medications] - Follow Up or Referral - Forms/Instructions Instructions: Myocardial Infarction (GEN), Coronary Artery Disease (GEN), Left Heart Catheterization (DC), Heart Healthy Diet (GEN)
[2016-09-08] MEDS: LACTATED RINGERS 1,000 ML IV PRN ×4 (12:23→16:37)
[2016-09-08] MEDS ORDERED: INSULIN REGULAR DRIP 100 ML IV SCH (12:30)
[2016-09-08] MEDS ORDERED: SODIUM CHLORIDE 0.45% 1,000 ML IV SCH (12:30)
[2016-09-08 12:34] LABS: ABG Base Excess -2.5 MMOL/L (-2.5-2.5); ABG HCO3 22.3 MMOL/L (20-26); ABG Oxygen Saturation 98.3 % (95-100); ABG PCO2 36.6 MM HG (35-48); ABG PH 7.386 (7.35-7.45); ABG TCO2 18.9 MMOL/L (23-27); Glucose Heart Surgery 134 MG/DL (74-106); Hematocrit Heart Surgery 44.1 PERCENT (42-52); Hemoglobin Heart Surgery 14.4 G/DL (14.0-18.0); Potassium Heart/CVR 3.7 MMOL/L (3.5-5.1)
[2016-09-08 12:35] LABS: Basophils % 0.3 % (0.0-0.8); Eosinophils # 0.2 10*3/uL (0.0-0.87); Eosinophils % 1.6 % (0.00-10.9); Hematocrit 40.5 VOL% (42.0-52.0); Immature Granulocytes % 1.3 %; Immature Granulocytes Absolute 0.18 #; Lymphocytes # 1.8 10*3/uL (1.4-4.0); Lymphocytes % 12.6 % (21.2-54.2); Mean Corpuscular HGB Conc 34.8 GM/DL (32-36); Mean Corpuscular Hemoglobin 33 PG (27-34); Mean Platelet Volume 11.5 FL (9.6-12.0); Monocytes # 0.9 10*3/uL (0.11-0.8); Monocytes % 6.3 % (1.7-12.7); Neutrophils # 11.2 10*3/uL (1.4-7.4); Neutrophils % 77.9 % (38.7-73.9); Red Cell Distribution Width 12.1 % (9.3-17.3)
[2016-09-08 12:45] LABS: INR 1.2; PT Patient Result 12.8 SECS; Partial Thromboplastin Time 31.5 SECS (0-40)
[2016-09-08] MEDS: ALBUMIN 5% 12.5 GM in PREMIX 1 EACH IV PRN ×3 (13:06→16:26)
[2016-09-08] MEDS: KETOROLAC 30 MG/1 ML VIAL IV SCH ×2 (13:07→18:48)
[2016-09-08 13:09] LABS: Hemoglobin 14.1 GM/DL (14.0-18.0); Platelet Count 190 T/CUMM (130-400); Red Blood Count 4.22 MC/CUMM (3.8-5.5); White Blood Count 14.4 T/CUMM (4-12)
[2016-09-08] MEDS: POTASSIUM CHLORIDE RIDER 20 MEQ in PREMIX 1 EACH IV PRN ×3 (13:12→18:16)
[2016-09-08] MEDS: ENOXAPARIN 40 MG/0.4 ML SYRINGE SUBCUT SCH (13:16)
[2016-09-08 13:18] LABS: CKMB % 8.4 %
[2016-09-08 13:20] LABS: Troponin I Only 9.6 NG/ML (0.00-0.045)
--- NOTE | 2016-09-08 13:31 | XRay Report ---
XR chest 1V portable Indication: Line placement. Comparison: Chest x-ray 09/06/2016. Technique: Portable AP chest was performed. Findings: This been interval sternotomy. The heart size is stable. Sternal wires, chest tubes, mediastinal drains, [place] catheter tip in the right pulmonary artery, endotracheal tube tip at the sternoclavicular junction, NG tube terminating within the stomach, and right IJ central venous catheter present. Atelectatic change of the left lower lobe is suggested. Lungs otherwise are clear. Heart size is stable. Impression: 1. Interval sternotomy. Left lower lobe atelectatic change is suggested. 09/08/2016 1:28 PM PROCEDURE INTERPRETED AT [facility] DEPARTMENT OF RADIOLOGY Final Report Signed by: Dr. To Doll
[2016-09-08 13:39] LABS: Albumin 2.7 G/DL (3.4-5.0); Bilirubin,Total 0.7 MG/DL (0.2-1.0); Calcium 8.9 MG/DL (8.5-10.1); Magnesium 2.3 MG/DL (1.8-2.4); Osmolality,Calculated 281.4 MOS/KG (273-304); Total Protein 5.2 G/DL (6.4-8.3)
[2016-09-08] MEDS: POTASSIUM CHLORIDE RIDER 10 MEQ in PREMIX 1 EACH IV PRN ×2 (14:11→15:27)
[2016-09-08 14:39] LABS: ABG Base Excess -4.3 MMOL/L (-2.5-2.5); ABG HCO3 20.9 MMOL/L (20-26); ABG Oxygen Saturation 99.3 % (95-100); ABG TCO2 17.4 MMOL/L (23-27); Glucose Heart Surgery 155 MG/DL (74-106); Hematocrit Heart Surgery 44.4 PERCENT (42-52); Hemoglobin Heart Surgery 14.5 G/DL (14.0-18.0); Potassium Heart/CVR 4.6 MMOL/L (3.5-5.1)
[2016-09-08] MEDS: MIDAZOLAM 2 MG/2 ML VIAL IV PRN ×4 (14:43→16:52)
[2016-09-08] MEDS: VECURONIUM 10 MG VIAL IV PRN ×2 (15:07→16:52)
[2016-09-08 16:19] LABS: ABG Base Excess -3.5 MMOL/L (-2.5-2.5); ABG HCO3 20.1 MMOL/L (20-26); ABG Oxygen Saturation 96.7 % (95-100); ABG PCO2 32.2 MM HG (35-48); ABG PH 7.413 (7.35-7.45); ABG PO2 91.4 MM HG (80-95); ABG TCO2 21.1 MMOL/L (23-27); Glucose Heart Surgery 136 MG/DL (74-106); Hemoglobin Heart Surgery 13.5 G/DL (14.0-18.0); Potassium Heart/CVR 4.2 MMOL/L (3.5-5.1)
[2016-09-08] MEDS ORDERED: PROPOFOL 1,000 MG/100 ML BOTTLE IV ONE (17:46)
[2016-09-08] MEDS ORDERED: PROPOFOL 1,000 MG/100 ML BOTTLE IV SCH (18:00)
[2016-09-08 18:07] LABS: ABG Base Excess -4.2 MMOL/L (-2.5-2.5); ABG HCO3 20.8 MMOL/L (20-26); ABG Oxygen Saturation 91.1 % (95-100); ABG PCO2 41.6 MM HG (35-48); ABG PH 7.324 (7.35-7.45); ABG PO2 65.8 MM HG (80-95); ABG TCO2 19.3 MMOL/L (23-27); Glucose Heart Surgery 180 MG/DL (74-106); Hematocrit Heart Surgery 38.6 PERCENT (42-52); Hemoglobin Heart Surgery 12.6 G/DL (14.0-18.0); Potassium Heart/CVR 4.2 MMOL/L (3.5-5.1)
[2016-09-08] MEDS: CEFUROXIME INJ 1,500 MG in SODIUM CHLORIDE 0.9% 100 ML IV SCH (19:35)
[2016-09-08] MEDS: MORPHINE 2 MG/1 ML SYRINGE IV PRN (20:07)
[2016-09-08 20:13] LABS: ABG Base Excess -4.5 MMOL/L (-2.5-2.5); ABG HCO3 20.7 MMOL/L (20-26); ABG Oxygen Saturation 98.5 % (95-100); ABG PCO2 35.9 MM HG (35-48); ABG PH 7.359 (7.35-7.45); Glucose Heart Surgery 167 MG/DL (74-106); Hematocrit Heart Surgery 49.5 PERCENT (42-52); Hemoglobin Heart Surgery 16.2 G/DL (14.0-18.0); Potassium Heart/CVR 4.5 MMOL/L (3.5-5.1)
[2016-09-08 20:39] LABS: CKMB % 8.6 %
[2016-09-08 20:44] LABS: ABG Base Excess -3.9 MMOL/L (-2.5-2.5); ABG HCO3 21.2 MMOL/L (20-26); ABG Oxygen Saturation 98.9 % (95-100); ABG PCO2 33.8 MM HG (35-48); ABG PH 7.386 (7.35-7.45); ABG TCO2 17.8 MMOL/L (23-27); Glucose Heart Surgery 167 MG/DL (74-106); Potassium Heart/CVR 4.5 MMOL/L (3.5-5.1)
[2016-09-08 20:44] LABS: Troponin I Only 11.3 NG/ML (0.00-0.045)
[2016-09-08] MEDS: MORPHINE 10 MG/1 ML VIAL IV PRN (21:16)
[2016-09-08 21:53] LABS: ABG Base Excess -4.4 MMOL/L (-2.5-2.5); ABG HCO3 20.8 MMOL/L (20-26); ABG Oxygen Saturation 97.8 % (95-100); ABG PCO2 37.7 MM HG (35-48); ABG PH 7.349 (7.35-7.45); ABG TCO2 18.2 MMOL/L (23-27); Glucose Heart Surgery 163 MG/DL (74-106); Hematocrit Heart Surgery 40.1 PERCENT (42-52); Potassium Heart/CVR 4.4 MMOL/L (3.5-5.1)
[2016-09-08 22:24] LABS: ABG Base Excess -3.9 MMOL/L (-2.5-2.5); ABG HCO3 21.2 MMOL/L (20-26); ABG Oxygen Saturation 97.6 % (95-100); ABG PCO2 35.6 MM HG (35-48); ABG PH 7.374 (7.35-7.45); ABG PO2 99.2 MM HG (80-95); ABG TCO2 18.2 MMOL/L (23-27); Glucose Heart Surgery 160 MG/DL (74-106); Hematocrit Heart Surgery 39.4 PERCENT (42-52); Hemoglobin Heart Surgery 12.8 G/DL (14.0-18.0); Potassium Heart/CVR 4.4 MMOL/L (3.5-5.1)
[2016-09-08] MEDS ORDERED: FUROSEMIDE 40 MG/4 ML VIAL IV ONE (22:28)
[2016-09-08] MEDS ORDERED: FUROSEMIDE 40 MG/4 ML VIAL ONE (22:29)
[2016-09-09] MEDS: KETOROLAC 30 MG/1 ML VIAL IV SCH ×4 (00:41→19:16)
[2016-09-09] MEDS: MORPHINE 2 MG/1 ML SYRINGE IV PRN ×2 (00:41→13:26)
[2016-09-09 04:27] LABS: ABG Base Excess -2.2 MMOL/L (-2.5-2.5); ABG HCO3 21.5 MMOL/L (20-26); ABG Oxygen Saturation 95.7 % (95-100); ABG PCO2 33.6 MM HG (35-48); ABG PH 7.423 (7.35-7.45); ABG PO2 82.2 MM HG (80-95); ABG TCO2 22.5 MMOL/L (23-27); Glucose Heart Surgery 112 MG/DL (74-106); Hemoglobin Heart Surgery 13.3 G/DL (14.0-18.0); Potassium Heart/CVR 4.1 MMOL/L (3.5-5.1)
[2016-09-09 04:34] LABS: Basophils % 0.1 % (0.0-0.8); Hematocrit 35.9 VOL% (42.0-52.0); Hemoglobin 12.6 GM/DL (14.0-18.0); Immature Granulocytes % 0.7 %; Immature Granulocytes Absolute 0.14 #; Lymphocytes # 1.2 10*3/uL (1.4-4.0); Mean Corpuscular HGB Conc 35.1 GM/DL (32-36); Mean Corpuscular Hemoglobin 33 PG (27-34); Mean Platelet Volume 12.7 FL (9.6-12.0); Monocytes # 1.2 10*3/uL (0.11-0.8); Neutrophils # 17.1 10*3/uL (1.4-7.4); Neutrophils % 87.2 % (38.7-73.9); Platelet Count 177 T/CUMM (130-400); Red Blood Count 3.78 MC/CUMM (3.8-5.5); Red Cell Distribution Width 12.4 % (9.3-17.3); White Blood Count 19.6 T/CUMM (4-12)
[2016-09-09] MEDS: POTASSIUM CHLORIDE RIDER 20 MEQ in PREMIX 1 EACH IV PRN (04:42)
[2016-09-09 05:21] LABS: Albumin 3.3 G/DL (3.4-5.0); Bilirubin,Direct 0.2 MG/DL (0.0-0.20); Bilirubin,Total 0.6 MG/DL (0.2-1.0); Calcium 8.3 MG/DL (8.5-10.1); Osmolality,Calculated 280.4 MOS/KG (273-304); Potassium 4.3 MMOL/L (3.5-5.1); Total Protein 5.8 G/DL (6.4-8.3)
[2016-09-09 05:48] LABS: CKMB % 10.3 %
[2016-09-09 05:49] LABS: Troponin I Only 28.3 NG/ML (0.00-0.045)
--- NOTE | 2016-09-09 06:17 | XRay Report ---
XR chest 1V portable Indication: Status post removal of chest tube. Comparison: Chest x-ray 09/08/2016 Technique: Portable AP chest was performed. Findings: Chest tubes appear stable in number and position. Minimal atelectatic change of the left lung base is present subsegmental atelectasis left lower lobe is unchanged. Interval extubation has occurred. NG tube no longer present. Impression: 1. No adverse interval change in chest status post extubation. 09/09/2016 6:13 AM PROCEDURE INTERPRETED AT [facility] DEPARTMENT OF RADIOLOGY Final Report Signed by: Dr. To Doll
--- NOTE | 2016-09-09 07:53 | EKG Report ---
Stationary ECG Study [facility] Test Date: 09/09/2016 7:53:10 AM Pat Name: JORGE TIMMONS Department: Room: 104 Gender: M Site Administrator: CYNDY : 1965 Requested by: Silviano Chan Order Number: [id number] Kevin MD: JANEEN MCMAHON Intervals [place] Rate: 96 P: 4 OK: 136 QRS: 52 QRSD: 110 T: -28 QT: 357 QTc: 410 Interpretive Statements SINUS RHYTHM PROBABLE INFERIOR MYOCARDIAL INFARCTION, OLD Electronically Signed On 09-13-16 07:40:01 CDT by JANEEN MCMAHON [email or web address]
--- NOTE | 2016-09-09 07:54 | Cardiothoracic Progress Note ---
Cardiothoracic Subjective Interval history: Patient is awake alert and extubated. He did well through the night with stable vital signs and has remained in sinus rhythm. Cardiac output has ranged between 4 and 5 L/min. He has had an enzyme elevation to troponin of 28 this morning. He did have preoperative enzymes which peaked at a troponin of 12 prior to surgery. His hemodynamics have not appeared to be adversely affected at this point. Blood gases are satisfactory postextubation and urine output and creatinine level are satisfactory. Chest tube drainage is minimal however the patient does have a small air leak from going to leave his chest tubes in place. Because of his moderate degree of enzyme elevation I am going to keep him in intensive care at least tonight. Exam (Progress Note) - Constitutional Vitals: Period Temp Pulse Resp BP Sys/Scruggs Pulse Ox Last 24 Hr 96.6 F-98.3 F 85-100 8-16 98-172/59-95 90-100 Result/EKG - Labs CBC & BMP: 09/09/16 04:10 09/09/16 04:10 Labs: Laboratory Results - last 24 hr 09/07/16 09/08/16 09/08/16 04:35 08:50 09:20 WBC RBC Hgb Hct MCV MCH MCHC RDW Plt Count MPV Neut % (Auto) Lymph % (Auto) [place] % (Auto) Eos % (Auto) Baso % (Auto) Neut # (Auto) Lymph # (Auto) [place] # (Auto) Eos # (Auto) Baso # (Auto) Immature Gran % Nucleated RBC % Immature Gran # Nucleated RBCs # INR PT Patient/Control Mix Circ Anticoag PTT Patient Temperature 35 34 ABG pH ABG pH at Pt Temp 7.402 7.423 ABG pCO2 ABG pCO2 at Pt Temp 36.0 32.4 ABG pO2 ABG pO2 at Pt Temp 41.3 39.4 ABG HCO3 ABG Total CO2 ABG O2 Saturation ABG Base Excess ABG Sodium 131 L 128 L VBG pH 7.373 7.380 VBG pCO2 39.6 L 37.4 L VBG pO2 47.5 H 48.5 H VBG HCO3 22.5 L 22.0 L VBG Total CO2 20.6 19.5 VBG O2 Saturation 81.8 82.9 VBG Base Excess -2.0 L -2.6 L Hemoglobin 11.9 L D 12.9 L Hematocrit 36.7 L 39.6 L Potassium 4.5 5.4 H Glucose 169 H 216 H Ionized Calcium FiO2 80.00 80.00 Sodium Chloride Carbon Dioxide Anion Gap BUN Creatinine GFR Calculation BUN/Creatinine Ratio POC Glucose Calculated Osmolality Calcium Venous Ioniz Calcium 0.98 L 1.01 L Magnesium Total Bilirubin Direct Bilirubin AST ALT Alkaline Phosphatase Total Creatine Kinase CK-MB (CK-2) CK and CKMB Interp Troponin I Total Protein Albumin Globulin Albumin/Globulin Ratio Blood Type A POSITIVE Antibody Screen Negative Crossmatch See Detail 09/08/16 09/08/16 09/08/16 10:05 10:55 10:55 WBC RBC Hgb Hct MCV MCH MCHC RDW Plt Count 156 D MPV Neut % (Auto) Lymph % (Auto) [place] % (Auto) Eos % (Auto) Baso % (Auto) Neut # (Auto) Lymph # (Auto) [place] # (Auto) Eos # (Auto) Baso # (Auto) Immature Gran % Nucleated RBC % Immature Gran # Nucleated RBCs # INR PT Patient/Control Mix Circ Anticoag PTT Patient Temperature 36 37 ABG pH 7.345 L ABG pH at Pt Temp 7.407 7.345 ABG pCO2 40.9 ABG pCO2 at Pt Temp 35.1 40.9 ABG pO2 178.0 H ABG pO2 at Pt Temp 36.6 178.0 ABG HCO3 21.8 ABG Total CO2 19.7 L ABG O2 Saturation 99.2 ABG Base Excess -3.2 L ABG Sodium 129 L 132 L VBG pH 7.393 VBG pCO2 36.8 L VBG pO2 39.3 VBG HCO3 22.2 L VBG Total CO2 20.1 VBG O2 Saturation 73.0 VBG Base Excess -2.1 L Hemoglobin 11.6 L 12.9 L Hematocrit 35.9 L 39.6 L Potassium 5.0 3.7 Glucose 192 H 159 H Ionized Calcium 1.32 FiO2 80.00 Sodium Chloride Carbon Dioxide Anion Gap BUN Creatinine GFR Calculation BUN/Creatinine Ratio POC Glucose Calculated Osmolality Calcium Venous Ioniz Calcium 0.98 L Magnesium Total Bilirubin Direct Bilirubin AST ALT Alkaline Phosphatase Total Creatine Kinase CK-MB (CK-2) CK and CKMB Interp Troponin I Total Protein Albumin Globulin Albumin/Globulin Ratio Blood Type Antibody Screen Crossmatch 09/08/16 09/08/16 09/08/16 12:00 12:00 12:00 WBC 14.4 H D RBC 4.22 D Hgb 14.1 D Hct 40.5 L MCV 96.0 MCH 33 MCHC 34.8 RDW 12.1 Plt Count 190 D MPV 11.5 Neut % (Auto) 77.9 H Lymph % (Auto) 12.6 L [place] % (Auto) 6.3 Eos % (Auto) 1.6 Baso % (Auto) 0.3 Neut # (Auto) 11.2 H Lymph # (Auto) 1.8 [place] # (Auto) 0.9 H Eos # (Auto) 0.2 Baso # (Auto) 0.0 Immature Gran % 1.3 Nucleated RBC % 0.0 Immature Gran # 0.18 Nucleated RBCs # 0.00 INR 1.2 PT Patient/Control Mix 12.8 D Circ Anticoag PTT 31.5 Patient Temperature ABG pH ABG pH at Pt Temp ABG pCO2 ABG pCO2 at Pt Temp ABG pO2 ABG pO2 at Pt Temp ABG HCO3 ABG Total CO2 ABG O2 Saturation ABG Base Excess ABG Sodium VBG pH VBG pCO2 VBG pO2 VBG HCO3 VBG Total CO2 VBG O2 Saturation VBG Base Excess Hemoglobin Hematocrit Potassium 4.0 Glucose 129 H Ionized Calcium FiO2 Sodium 140 Chloride 109 H Carbon Dioxide 22 Anion Gap 13.0 BUN 14 Creatinine 1.10 GFR Calculation 96 BUN/Creatinine Ratio 12.00 POC Glucose Calculated Osmolality 281.4 Calcium 8.9 Venous Ioniz Calcium Magnesium 2.3 Total Bilirubin 0.70 Direct Bilirubin AST 42 H ALT 19 Alkaline Phosphatase 42 L Total Creatine Kinase CK-MB (CK-2) CK and CKMB Interp Troponin I Total Protein 5.2 L Albumin 2.7 L Globulin 2.5 Albumin/Globulin Ratio 1.0 L Blood Type Antibody Screen Crossmatch 09/08/16 09/08/16 09/08/16 12:00 12:00 14:27 WBC RBC Hgb Hct MCV MCH MCHC RDW Plt Count MPV Neut % (Auto) Lymph % (Auto) [place] % (Auto) Eos % (Auto) Baso % (Auto) Neut # (Auto) Lymph # (Auto) [place] # (Auto) Eos # (Auto) Baso # (Auto) Immature Gran % Nucleated RBC % Immature Gran # Nucleated RBCs # INR PT Patient/Control Mix Circ Anticoag PTT Patient Temperature ABG pH 7.386 7.370 ABG pH at Pt Temp ABG pCO2 36.6 35.0 ABG pCO2 at Pt Temp ABG pO2 118.0 H 187.0 H ABG pO2 at Pt Temp ABG HCO3 22.3 20.9 ABG Total CO2 18.9 L 17.4 L ABG O2 Saturation 98.3 99.3 ABG Base Excess -2.5 -4.3 L ABG Sodium VBG pH VBG pCO2 VBG pO2 VBG HCO3 VBG Total CO2 VBG O2 Saturation VBG Base Excess Hemoglobin 14.4 14.5 Hematocrit 44.1 44.4 Potassium 3.7 4.6 Glucose 134 H 155 H Ionized Calcium FiO2 Sodium Chloride Carbon Dioxide Anion Gap BUN Creatinine GFR Calculation BUN/Creatinine Ratio POC Glucose Calculated Osmolality Calcium Venous Ioniz Calcium Magnesium Total Bilirubin Direct Bilirubin AST ALT Alkaline Phosphatase Total Creatine Kinase 362 H D CK-MB (CK-2) 30.4 H CK and CKMB Interp 8.4 Troponin I 9.600 H Total Protein Albumin Globulin Albumin/Globulin Ratio Blood Type Antibody Screen Crossmatch 09/08/16 09/08/16 09/08/16 16:01 16:57 18:00 WBC RBC Hgb Hct MCV MCH MCHC RDW Plt Count MPV Neut % (Auto) Lymph % (Auto) [place] % (Auto) Eos % (Auto) Baso % (Auto) Neut # (Auto) Lymph # (Auto) [place] # (Auto) Eos # (Auto) Baso # (Auto) Immature Gran % Nucleated RBC % Immature Gran # Nucleated RBCs # INR PT Patient/Control Mix Circ Anticoag PTT Patient Temperature ABG pH 7.413 7.324 L ABG pH at Pt Temp ABG pCO2 32.2 L 41.6 ABG pCO2 at Pt Temp ABG pO2 91.4 65.8 L ABG pO2 at Pt Temp ABG HCO3 20.1 20.8 ABG Total CO2 21.1 L 19.3 L ABG O2 Saturation 96.7 91.1 L ABG Base Excess -3.5 L -4.2 L ABG Sodium VBG pH VBG pCO2 VBG pO2 VBG HCO3 VBG Total CO2 VBG O2 Saturation VBG Base Excess Hemoglobin 13.5 L 12.6 L Hematocrit 40.0 L 38.6 L Potassium 4.2 4.2 Glucose 136 H 180 H Ionized Calcium FiO2 Sodium Chloride Carbon Dioxide Anion Gap BUN Creatinine GFR Calculation BUN/Creatinine Ratio POC Glucose 138 H Calculated Osmolality Calcium Venous Ioniz Calcium Magnesium Total Bilirubin Direct Bilirubin AST ALT Alkaline Phosphatase Total Creatine Kinase CK-MB (CK-2) CK and CKMB Interp Troponin I Total Protein Albumin Globulin Albumin/Globulin Ratio Blood Type Antibody Screen Crossmatch 09/08/16 09/08/16 09/08/16 18:42 20:00 20:17 WBC RBC Hgb Hct MCV MCH MCHC RDW Plt Count MPV Neut % (Auto) Lymph % (Auto) [place] % (Auto) Eos % (Auto) Baso % (Auto) Neut # (Auto) Lymph # (Auto) [place] # (Auto) Eos # (Auto) Baso # (Auto) Immature Gran % Nucleated RBC % Immature Gran # Nucleated RBCs # INR PT Patient/Control Mix Circ Anticoag PTT Patient Temperature ABG pH 7.359 ABG pH at Pt Temp ABG pCO2 35.9 ABG pCO2 at Pt Temp ABG pO2 144.0 H ABG pO2 at Pt Temp ABG HCO3 20.7 ABG Total CO2 17.0 L ABG O2 Saturation 98.5 ABG Base Excess -4.5 L ABG Sodium VBG pH VBG pCO2 VBG pO2 VBG HCO3 VBG Total CO2 VBG O2 Saturation VBG Base Excess Hemoglobin 16.2 D Hematocrit 49.5 Potassium 4.5 Glucose 167 H Ionized Calcium FiO2 Sodium Chloride Carbon Dioxide Anion Gap BUN Creatinine GFR Calculation BUN/Creatinine Ratio POC Glucose 152 H Calculated Osmolality Calcium Venous Ioniz Calcium Magnesium Total Bilirubin Direct Bilirubin AST ALT Alkaline Phosphatase Total Creatine Kinase 644 H D CK-MB (CK-2) 55.1 H D CK and CKMB Interp 8.6 Troponin I 11.300 H Total Protein Albumin Globulin Albumin/Globulin Ratio Blood Type Antibody Screen Crossmatch 09/08/16 09/08/16 09/08/16 20:40 21:50 22:26 WBC RBC Hgb Hct MCV MCH MCHC RDW Plt Count MPV Neut % (Auto) Lymph % (Auto) [place] % (Auto) Eos % (Auto) Baso % (Auto) Neut # (Auto) Lymph # (Auto) [place] # (Auto) Eos # (Auto) Baso # (Auto) Immature Gran % Nucleated RBC % Immature Gran # Nucleated RBCs # INR PT Patient/Control Mix Circ Anticoag PTT Patient Temperature ABG pH 7.386 7.349 L 7.374 ABG pH at Pt Temp ABG pCO2 33.8 L 37.7 35.6 ABG pCO2 at Pt Temp ABG pO2 136.0 H 112.0 H 99.2 H ABG pO2 at Pt Temp ABG HCO3 21.2 20.8 21.2 ABG Total CO2 17.8 L 18.2 L 18.2 L ABG O2 Saturation 98.9 97.8 97.6 ABG Base Excess -3.9 L -4.4 L -3.9 L ABG Sodium VBG pH VBG pCO2 VBG pO2 VBG HCO3 VBG Total CO2 VBG O2 Saturation VBG Base Excess Hemoglobin 13.0 L D 13.0 L 12.8 L Hematocrit 40.0 L 40.1 L 39.4 L Potassium 4.5 4.4 4.4 Glucose 167 H 163 H 160 H Ionized Calcium FiO2 Sodium Chloride Carbon Dioxide Anion Gap BUN Creatinine GFR Calculation BUN/Creatinine Ratio POC Glucose Calculated Osmolality Calcium Venous Ioniz Calcium Magnesium Total Bilirubin Direct Bilirubin AST ALT Alkaline Phosphatase Total Creatine Kinase CK-MB (CK-2) CK and CKMB Interp Troponin I Total Protein Albumin Globulin Albumin/Globulin Ratio Blood Type Antibody Screen Crossmatch 09/08/16 09/09/16 09/09/16 23:14 00:55 02:18 WBC RBC Hgb Hct MCV MCH MCHC RDW Plt Count MPV Neut % (Auto) Lymph % (Auto) [place] % (Auto) Eos % (Auto) Baso % (Auto) Neut # (Auto) Lymph # (Auto) [place] # (Auto) Eos # (Auto) Baso # (Auto) Immature Gran % Nucleated RBC % Immature Gran # Nucleated RBCs # INR PT Patient/Control Mix Circ Anticoag PTT Patient Temperature ABG pH ABG pH at Pt Temp ABG pCO2 ABG pCO2 at Pt Temp ABG pO2 ABG pO2 at Pt Temp ABG HCO3 ABG Total CO2 ABG O2 Saturation ABG Base Excess ABG Sodium VBG pH VBG pCO2 VBG pO2 VBG HCO3 VBG Total CO2 VBG O2 Saturation VBG Base Excess Hemoglobin Hematocrit Potassium Glucose Ionized Calcium FiO2 Sodium Chloride Carbon Dioxide Anion Gap BUN Creatinine GFR Calculation BUN/Creatinine Ratio POC Glucose 144 H 137 H 133 H Calculated Osmolality Calcium Venous Ioniz Calcium Magnesium Total Bilirubin Direct Bilirubin AST ALT Alkaline Phosphatase Total Creatine Kinase CK-MB (CK-2) CK and CKMB Interp Troponin I Total Protein Albumin Globulin Albumin/Globulin Ratio Blood Type Antibody Screen Crossmatch 09/09/16 09/09/16 09/09/16 04:10 04:10 04:10 WBC 19.6 H D RBC 3.78 L Hgb 12.6 L Hct 35.9 L MCV 95.0 MCH 33 MCHC 35.1 RDW 12.4 Plt Count 177 MPV 12.7 H Neut % (Auto) 87.2 H Lymph % (Auto) 6.0 L [place] % (Auto) 6.0 Eos % (Auto) 0.0 Baso % (Auto) 0.1 Neut # (Auto) 17.1 H Lymph # (Auto) 1.2 L [place] # (Auto) 1.2 H Eos # (Auto) 0.0 Baso # (Auto) 0.0 Immature Gran % 0.7 Nucleated RBC % 0.0 Immature Gran # 0.14 Nucleated RBCs # 0.00 INR PT Patient/Control Mix Circ Anticoag PTT Patient Temperature ABG pH 7.423 ABG pH at Pt Temp ABG pCO2 33.6 L ABG pCO2 at Pt Temp ABG pO2 82.2 ABG pO2 at Pt Temp ABG HCO3 21.5 ABG Total CO2 22.5 L ABG O2 Saturation 95.7 ABG Base Excess -2.2 ABG Sodium VBG pH VBG pCO2 VBG pO2 VBG HCO3 VBG Total CO2 VBG O2 Saturation VBG Base Excess Hemoglobin 13.3 L Hematocrit 39.0 L Potassium 4.3 4.1 Glucose 121 H 112 H Ionized Calcium FiO2 Sodium 140 Chloride 109 H Carbon Dioxide 22 Anion Gap 13.3 BUN 16 Creatinine 1.10 GFR Calculation 98 BUN/Creatinine Ratio 14.00 POC Glucose Calculated Osmolality 280.4 Calcium 8.3 L Venous Ioniz Calcium Magnesium 2.0 Total Bilirubin 0.60 Direct Bilirubin 0.20 AST 161 H ALT 30 Alkaline Phosphatase 39 L Total Creatine Kinase CK-MB (CK-2) CK and CKMB Interp Troponin I Total Protein 5.8 L Albumin 3.3 L Globulin 2.5 Albumin/Globulin Ratio 1.3 Blood Type Antibody Screen Crossmatch 09/09/16 09/09/16 04:10 05:59 WBC RBC Hgb Hct MCV MCH MCHC RDW Plt Count MPV Neut % (Auto) Lymph % (Auto) [place] % (Auto) Eos % (Auto) Baso % (Auto) Neut # (Auto) Lymph # (Auto) [place] # (Auto) Eos # (Auto) Baso # (Auto) Immature Gran % Nucleated RBC % Immature Gran # Nucleated RBCs # INR PT Patient/Control Mix Circ Anticoag PTT Patient Temperature ABG pH ABG pH at Pt Temp ABG pCO2 ABG pCO2 at Pt Temp ABG pO2 ABG pO2 at Pt Temp ABG HCO3 ABG Total CO2 ABG O2 Saturation ABG Base Excess ABG Sodium VBG pH VBG pCO2 VBG pO2 VBG HCO3 VBG Total CO2 VBG O2 Saturation VBG Base Excess Hemoglobin Hematocrit Potassium Glucose Ionized Calcium FiO2 Sodium Chloride Carbon Dioxide Anion Gap BUN Creatinine GFR Calculation BUN/Creatinine Ratio POC Glucose 125 H Calculated Osmolality Calcium Venous Ioniz Calcium Magnesium Total Bilirubin Direct Bilirubin AST ALT Alkaline Phosphatase Total Creatine Kinase 1512 H D CK-MB (CK-2) 155.2 H D CK and CKMB Interp 10.3 Troponin I 28.300 H D Total Protein Albumin Globulin Albumin/Globulin Ratio Blood Type Antibody Screen Crossmatch Quality Measures - VTE Contraindication to Pharmacological VTE Prophylaxis: High Risk of Bleeding Specialty Discharge - Follow Up or Referrals
[2016-09-09] MEDS ORDERED: FUROSEMIDE 40 MG/4 ML VIAL IV ONE (07:57)
[2016-09-09] MEDS: ROSUVASTATIN 20 MG TABLET PO SCH (11:17)
[2016-09-09] MEDS: CARVEDILOL 12.5 MG TABLET PO SCH ×2 (11:17→21:15)
[2016-09-09] MEDS: ASPIRIN EC 81 MG TABLET PO SCH (11:17)
[2016-09-09] MEDS: CHLORHEXIDINE 0.12% ORAL RINSE 60 ML BOTTLE SWISH/SPIT SCH ×2 (11:18→21:23)
[2016-09-09] MEDS: VALSARTAN 80 MG TABLET PO SCH ×2 (11:18→21:15)
[2016-09-09] MEDS: CEFUROXIME INJ 1,500 MG in SODIUM CHLORIDE 0.9% 100 ML IV SCH ×2 (11:19→21:12)
[2016-09-09 13:08] LABS: CKMB % 10.6 %
[2016-09-09 13:14] LABS: Troponin I Only 32.2 NG/ML (0.00-0.045)
--- NOTE | 2016-09-09 13:24 | Cardiology Progress Note ---
<Diane Rodriguez - Last Filed: 09/09/16 13:19> Assessment and Plan (1) Status post coronary artery bypass graft Status: Acute Assessment and plan: Patient underwent CABG 09/08/16 with ANDRADE graft to LAD, SVG to diagonal, SVG to circumflex and SVG to right posterior lateral coronary artery. Patient is doing well postoperatively. Continue current plan of care. -Continue aspirin -Continue lipid-lowering agent -Continue beta-jany Further plan and addendum to follow per Dr. Jean. Current Visit: Yes (2) HTN (hypertension) Status: Chronic Assessment and plan: This is clinically stable at this time. Continue current plan of care. 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 Rose, 51 year-old white male with history of oral tobacco use, hypertension and strong family history of CAD (brother at age 57, his father of heart attack in his late 70s) who has had intermittent episodes of chest pain over the last 5 days since lifting a heavy couch. He was transferred here from [facility] with non-STEMI. He underwent left heart catheterization which revealed three-vessel coronary artery disease that Dr. Moore felt would be best treated with bypass surgery. Dr. Be was then consulted and patient underwent CABG 09/08/16 with ANDRADE graft to LAD, SVG to diagonal, SVG to circumflex and SVG to right posterior lateral coronary artery. Patient was seen and examined in the ICU. He has done well post CABG. He is now extubated and in no acute respiratory distress. Chest tubes remain intact due to small air leak. Troponin ryan post surgery to 32.2. Because of this, Dr. Be has chosen to watch patient closely in the ICU for 1 more night. Will continue to monitor these. No changes noted per EKG. Patient denies chest pain , heaviness and tightness. He does however complain of chest soreness, exacerbated when he coughs. Midsternal dressing as well as bilateral lower extremity dressings are clean dry and intact. Vital signs are stable. Patient has remained in normal sinus rhythm without any overt arrhythmias or ectopy noted. Further plan and addendum to follow per Dr. Jean. Exam (Progress Note) - Constitutional Vitals: Period Temp Pulse Resp BP Sys/Scruggs Pulse Ox Last 24 Hr 96.6 F-98.8 F 88-100 8-24 98-172/59-95 90-100 General appearance: normal weight, no acute distress - Head Head exam: Present: normal inspection, normocephalic, atraumatic - Neck Neck exam: Present: normal inspection - Respiratory Respiratory exam: Present: clear to auscultation bilaterally. Absent: accessory muscle use, rales, rhonchi - Cardiovascular Cardiovascular exam: Present: regular rate and rhythm. Absent: gallop, rubs - GI/Abdominal GI/Abdominal exam: Present: normal bowel sounds, soft. Absent: distended, firm , mass, tenderness - Extremities Exam Extremities exam: Present: normal capillary refill, other (Bilateral lower extremity dressings clean dry and intact. Bilateral lower extremity pulses 2+.) - Neurological Exam Neurological exam: Present: alert, oriented X3 - Psychiatric Psychiatric exam: Present: normal affect, normal mood - Skin Skin exam: Present: normal color, warm, dry, other (Midsternal chest incision clean dry and intact.) Result/EKG - Labs CBC & BMP: 09/09/16 04:10 09/09/16 04:10 Lab Results: I have reviewed the past 24 hour labs Labs: Laboratory Results - last 24 hr 09/07/16 09/08/16 09/08/16 04:35 12:00 12:00 WBC RBC Hgb Hct MCV MCH MCHC RDW Plt Count MPV Neut % (Auto) Lymph % (Auto) [place] % (Auto) Eos % (Auto) Baso % (Auto) Neut # (Auto) Lymph # (Auto) [place] # (Auto) Eos # (Auto) Baso # (Auto) Immature Gran % Nucleated RBC % Immature Gran # Nucleated RBCs # ABG pH ABG pCO2 ABG pO2 ABG HCO3 ABG Total CO2 ABG O2 Saturation ABG Base Excess Hemoglobin Hematocrit Sodium 140 Potassium 4.0 Chloride 109 H Carbon Dioxide 22 Anion Gap 13.0 BUN 14 Creatinine 1.10 GFR Calculation 96 BUN/Creatinine Ratio 12.00 Glucose 129 H POC Glucose Calculated Osmolality 281.4 Calcium 8.9 Magnesium 2.3 Total Bilirubin 0.70 Direct Bilirubin AST 42 H ALT 19 Alkaline Phosphatase 42 L Total Creatine Kinase 362 H D CK-MB (CK-2) 30.4 H CK and CKMB Interp 8.4 Troponin I 9.600 H Total Protein 5.2 L Albumin 2.7 L Globulin 2.5 Albumin/Globulin Ratio 1.0 L Blood Type A POSITIVE Antibody Screen Negative Crossmatch See Detail 09/08/16 09/08/16 09/08/16 14:27 16:01 16:57 WBC RBC Hgb Hct MCV MCH MCHC RDW Plt Count MPV Neut % (Auto) Lymph % (Auto) [place] % (Auto) Eos % (Auto) Baso % (Auto) Neut # (Auto) Lymph # (Auto) [place] # (Auto) Eos # (Auto) Baso # (Auto) Immature Gran % Nucleated RBC % Immature Gran # Nucleated RBCs # ABG pH 7.370 7.413 ABG pCO2 35.0 32.2 L ABG pO2 187.0 H 91.4 ABG HCO3 20.9 20.1 ABG Total CO2 17.4 L 21.1 L ABG O2 Saturation 99.3 96.7 ABG Base Excess -4.3 L -3.5 L Hemoglobin 14.5 13.5 L Hematocrit 44.4 40.0 L Sodium Potassium 4.6 4.2 Chloride Carbon Dioxide Anion Gap BUN Creatinine GFR Calculation BUN/Creatinine Ratio Glucose 155 H 136 H POC Glucose 138 H Calculated Osmolality Calcium Magnesium Total Bilirubin Direct Bilirubin AST ALT Alkaline Phosphatase Total Creatine Kinase CK-MB (CK-2) CK and CKMB Interp Troponin I Total Protein Albumin Globulin Albumin/Globulin Ratio Blood Type Antibody Screen Crossmatch 09/08/16 09/08/16 09/08/16 18:00 18:42 20:00 WBC RBC Hgb Hct MCV MCH MCHC RDW Plt Count MPV Neut % (Auto) Lymph % (Auto) [place] % (Auto) Eos % (Auto) Baso % (Auto) Neut # (Auto) Lymph # (Auto) [place] # (Auto) Eos # (Auto) Baso # (Auto) Immature Gran % Nucleated RBC % Immature Gran # Nucleated RBCs # ABG pH 7.324 L 7.359 ABG pCO2 41.6 35.9 ABG pO2 65.8 L 144.0 H ABG HCO3 20.8 20.7 ABG Total CO2 19.3 L 17.0 L ABG O2 Saturation 91.1 L 98.5 ABG Base Excess -4.2 L -4.5 L Hemoglobin 12.6 L 16.2 D Hematocrit 38.6 L 49.5 Sodium Potassium 4.2 4.5 Chloride Carbon Dioxide Anion Gap BUN Creatinine GFR Calculation BUN/Creatinine Ratio Glucose 180 H 167 H POC Glucose 152 H Calculated Osmolality Calcium Magnesium Total Bilirubin Direct Bilirubin AST ALT Alkaline Phosphatase Total Creatine Kinase CK-MB (CK-2) CK and CKMB Interp Troponin I Total Protein Albumin Globulin Albumin/Globulin Ratio Blood Type Antibody Screen Crossmatch 09/08/16 09/08/16 09/08/16 20:17 20:40 21:50 WBC RBC Hgb Hct MCV MCH MCHC RDW Plt Count MPV Neut % (Auto) Lymph % (Auto) [place] % (Auto) Eos % (Auto) Baso % (Auto) Neut # (Auto) Lymph # (Auto) [place] # (Auto) Eos # (Auto) Baso # (Auto) Immature Gran % Nucleated RBC % Immature Gran # Nucleated RBCs # ABG pH 7.386 7.349 L ABG pCO2 33.8 L 37.7 ABG pO2 136.0 H 112.0 H ABG HCO3 21.2 20.8 ABG Total CO2 17.8 L 18.2 L ABG O2 Saturation 98.9 97.8 ABG Base Excess -3.9 L -4.4 L Hemoglobin 13.0 L D 13.0 L Hematocrit 40.0 L 40.1 L Sodium Potassium 4.5 4.4 Chloride Carbon Dioxide Anion Gap BUN Creatinine GFR Calculation BUN/Creatinine Ratio Glucose 167 H 163 H POC Glucose Calculated Osmolality Calcium Magnesium Total Bilirubin Direct Bilirubin AST ALT Alkaline Phosphatase Total Creatine Kinase 644 H D CK-MB (CK-2) 55.1 H D CK and CKMB Interp 8.6 Troponin I 11.300 H Total Protein Albumin Globulin Albumin/Globulin Ratio Blood Type Antibody Screen Crossmatch 09/08/16 09/08/16 09/09/16 22:26 23:14 00:55 WBC RBC Hgb Hct MCV MCH MCHC RDW Plt Count MPV Neut % (Auto) Lymph % (Auto) [place] % (Auto) Eos % (Auto) Baso % (Auto) Neut # (Auto) Lymph # (Auto) [place] # (Auto) Eos # (Auto) Baso # (Auto) Immature Gran % Nucleated RBC % Immature Gran # Nucleated RBCs # ABG pH 7.374 ABG pCO2 35.6 ABG pO2 99.2 H ABG HCO3 21.2 ABG Total CO2 18.2 L ABG O2 Saturation 97.6 ABG Base Excess -3.9 L Hemoglobin 12.8 L Hematocrit 39.4 L Sodium Potassium 4.4 Chloride Carbon Dioxide Anion Gap BUN Creatinine GFR Calculation BUN/Creatinine Ratio Glucose 160 H POC Glucose 144 H 137 H Calculated Osmolality Calcium Magnesium Total Bilirubin Direct Bilirubin AST ALT Alkaline Phosphatase Total Creatine Kinase CK-MB (CK-2) CK and CKMB Interp Troponin I Total Protein Albumin Globulin Albumin/Globulin Ratio Blood Type Antibody Screen Crossmatch 09/09/16 09/09/16 09/09/16 02:18 04:10 04:10 WBC 19.6 H D RBC 3.78 L Hgb 12.6 L Hct 35.9 L MCV 95.0 MCH 33 MCHC 35.1 RDW 12.4 Plt Count 177 MPV 12.7 H Neut % (Auto) 87.2 H Lymph % (Auto) 6.0 L [place] % (Auto) 6.0 Eos % (Auto) 0.0 Baso % (Auto) 0.1 Neut # (Auto) 17.1 H Lymph # (Auto) 1.2 L [place] # (Auto) 1.2 H Eos # (Auto) 0.0 Baso # (Auto) 0.0 Immature Gran % 0.7 Nucleated RBC % 0.0 Immature Gran # 0.14 Nucleated RBCs # 0.00 ABG pH ABG pCO2 ABG pO2 ABG HCO3 ABG Total CO2 ABG O2 Saturation ABG Base Excess Hemoglobin Hematocrit Sodium 140 Potassium 4.3 Chloride 109 H Carbon Dioxide 22 Anion Gap 13.3 BUN 16 Creatinine 1.10 GFR Calculation 98 BUN/Creatinine Ratio 14.00 Glucose 121 H POC Glucose 133 H Calculated Osmolality 280.4 Calcium 8.3 L Magnesium 2.0 Total Bilirubin 0.60 Direct Bilirubin 0.20 AST 161 H ALT 30 Alkaline Phosphatase 39 L Total Creatine Kinase CK-MB (CK-2) CK and CKMB Interp Troponin I Total Protein 5.8 L Albumin 3.3 L Globulin 2.5 Albumin/Globulin Ratio 1.3 Blood Type Antibody Screen Crossmatch 09/09/16 09/09/16 09/09/16 04:10 04:10 05:59 WBC RBC Hgb Hct MCV MCH MCHC RDW Plt Count MPV Neut % (Auto) Lymph % (Auto) [place] % (Auto) Eos % (Auto) Baso % (Auto) Neut # (Auto) Lymph # (Auto) [place] # (Auto) Eos # (Auto) Baso # (Auto) Immature Gran % Nucleated RBC % Immature Gran # Nucleated RBCs # ABG pH 7.423 ABG pCO2 33.6 L ABG pO2 82.2 ABG HCO3 21.5 ABG Total CO2 22.5 L ABG O2 Saturation 95.7 ABG Base Excess -2.2 Hemoglobin 13.3 L Hematocrit 39.0 L Sodium Potassium 4.1 Chloride Carbon Dioxide Anion Gap BUN Creatinine GFR Calculation BUN/Creatinine Ratio Glucose 112 H POC Glucose 125 H Calculated Osmolality Calcium Magnesium Total Bilirubin Direct Bilirubin AST ALT Alkaline Phosphatase Total Creatine Kinase 1512 H D CK-MB (CK-2) 155.2 H D CK and CKMB Interp 10.3 Troponin I 28.300 H D Total Protein Albumin Globulin Albumin/Globulin Ratio Blood Type Antibody Screen Crossmatch 09/09/16 09/09/16 08:27 12:14 WBC RBC Hgb Hct MCV MCH MCHC RDW Plt Count MPV Neut % (Auto) Lymph % (Auto) [place] % (Auto) Eos % (Auto) Baso % (Auto) Neut # (Auto) Lymph # (Auto) [place] # (Auto) Eos # (Auto) Baso # (Auto) Immature Gran % Nucleated RBC % Immature Gran # Nucleated RBCs # ABG pH ABG pCO2 ABG pO2 ABG HCO3 ABG Total CO2 ABG O2 Saturation ABG Base Excess Hemoglobin Hematocrit Sodium Potassium Chloride Carbon Dioxide Anion Gap BUN Creatinine GFR Calculation BUN/Creatinine Ratio Glucose POC Glucose 131 H Calculated Osmolality Calcium Magnesium Total Bilirubin Direct Bilirubin AST ALT Alkaline Phosphatase Total Creatine Kinase 1394 H CK-MB (CK-2) 148.2 H D CK and CKMB Interp 10.6 Troponin I 32.200 H Total Protein Albumin Globulin Albumin/Globulin Ratio Blood Type Antibody Screen Crossmatch Quality Measures - VTE Contraindication to Pharmacological VTE Prophylaxis: High Risk of Bleeding Specialty Discharge - Follow Up or Referrals <Glenny Jean - Last Filed: 09/09/16 17:10> Assessment and Plan (1) Coronary artery disease Status: Chronic Current Visit: Yes (2) NSTEMI (non-ST elevated myocardial infarction) Status: Resolved Current Visit: Yes (3) HTN (hypertension) Status: Chronic Current Visit: Yes Cardiology - PN: Subj Interval history: I have personally interviewed and examined the patient, reviewed the chart and discussed medical decision-making with practitioner Michael. I have read this note and agree with the documentation herein. He is recuperating well and is hemodynamically stable. Exam (Progress Note) - Constitutional Vitals: Period Temp Pulse Resp BP Sys/Scruggs Pulse Ox Last 24 Hr 96.6 F-99.1 F 87-100 12-24 98-172/59-95 90-100 Result/EKG - Labs CBC & BMP: 09/09/16 04:10 09/09/16 04:10 Labs: Laboratory Results - last 24 hr 09/07/16 09/08/16 09/08/16 04:35 16:57 18:00 WBC RBC Hgb Hct MCV MCH MCHC RDW Plt Count MPV Neut % (Auto) Lymph % (Auto) [place] % (Auto) Eos % (Auto) Baso % (Auto) Neut # (Auto) Lymph # (Auto) [place] # (Auto) Eos # (Auto) Baso # (Auto) Immature Gran % Nucleated RBC % Immature Gran # Nucleated RBCs # ABG pH 7.324 L ABG pCO2 41.6 ABG pO2 65.8 L ABG HCO3 20.8 ABG Total CO2 19.3 L ABG O2 Saturation 91.1 L ABG Base Excess -4.2 L Hemoglobin 12.6 L Hematocrit 38.6 L Potassium 4.2 Glucose 180 H Sodium Chloride Carbon Dioxide Anion Gap BUN Creatinine GFR Calculation BUN/Creatinine Ratio POC Glucose 138 H Calculated Osmolality Calcium Magnesium Total Bilirubin Direct Bilirubin AST ALT Alkaline Phosphatase Total Creatine Kinase CK-MB (CK-2) CK and CKMB Interp Troponin I Total Protein Albumin Globulin Albumin/Globulin Ratio Blood Type A POSITIVE Antibody Screen Negative Crossmatch See Detail 09/08/16 09/08/16 09/08/16 18:42 20:00 20:17 WBC RBC Hgb Hct MCV MCH MCHC RDW Plt Count MPV Neut % (Auto) Lymph % (Auto) [place] % (Auto) Eos % (Auto) Baso % (Auto) Neut # (Auto) Lymph # (Auto) [place] # (Auto) Eos # (Auto) Baso # (Auto) Immature Gran % Nucleated RBC % Immature Gran # Nucleated RBCs # ABG pH 7.359 ABG pCO2 35.9 ABG pO2 144.0 H ABG HCO3 20.7 ABG Total CO2 17.0 L ABG O2 Saturation 98.5 ABG Base Excess -4.5 L Hemoglobin 16.2 D Hematocrit 49.5 Potassium 4.5 Glucose 167 H Sodium Chloride Carbon Dioxide Anion Gap BUN Creatinine GFR Calculation BUN/Creatinine Ratio POC Glucose 152 H Calculated Osmolality Calcium Magnesium Total Bilirubin Direct Bilirubin AST ALT Alkaline Phosphatase Total Creatine Kinase 644 H D CK-MB (CK-2) 55.1 H D CK and CKMB Interp 8.6 Troponin I 11.300 H Total Protein Albumin Globulin Albumin/Globulin Ratio Blood Type Antibody Screen Crossmatch 09/08/16 09/08/16 09/08/16 20:40 21:50 22:26 WBC RBC Hgb Hct MCV MCH MCHC RDW Plt Count MPV Neut % (Auto) Lymph % (Auto) [place] % (Auto) Eos % (Auto) Baso % (Auto) Neut # (Auto) Lymph # (Auto) [place] # (Auto) Eos # (Auto) Baso # (Auto) Immature Gran % Nucleated RBC % Immature Gran # Nucleated RBCs # ABG pH 7.386 7.349 L 7.374 ABG pCO2 33.8 L 37.7 35.6 ABG pO2 136.0 H 112.0 H 99.2 H ABG HCO3 21.2 20.8 21.2 ABG Total CO2 17.8 L 18.2 L 18.2 L ABG O2 Saturation 98.9 97.8 97.6 ABG Base Excess -3.9 L -4.4 L -3.9 L Hemoglobin 13.0 L D 13.0 L 12.8 L Hematocrit 40.0 L 40.1 L 39.4 L Potassium 4.5 4.4 4.4 Glucose 167 H 163 H 160 H Sodium Chloride Carbon Dioxide Anion Gap BUN Creatinine GFR Calculation BUN/Creatinine Ratio POC Glucose Calculated Osmolality Calcium Magnesium Total Bilirubin Direct Bilirubin AST ALT Alkaline Phosphatase Total Creatine Kinase CK-MB (CK-2) CK and CKMB Interp Troponin I Total Protein Albumin Globulin Albumin/Globulin Ratio Blood Type Antibody Screen Crossmatch 09/08/16 09/09/16 09/09/16 23:14 00:55 02:18 WBC RBC Hgb Hct MCV MCH MCHC RDW Plt Count MPV Neut % (Auto) Lymph % (Auto) [place] % (Auto) Eos % (Auto) Baso % (Auto) Neut # (Auto) Lymph # (Auto) [place] # (Auto) Eos # (Auto) Baso # (Auto) Immature Gran % Nucleated RBC % Immature Gran # Nucleated RBCs # ABG pH ABG pCO2 ABG pO2 ABG HCO3 ABG Total CO2 ABG O2 Saturation ABG Base Excess Hemoglobin Hematocrit Potassium Glucose Sodium Chloride Carbon Dioxide Anion Gap BUN Creatinine GFR Calculation BUN/Creatinine Ratio POC Glucose 144 H 137 H 133 H Calculated Osmolality Calcium Magnesium Total Bilirubin Direct Bilirubin AST ALT Alkaline Phosphatase Total Creatine Kinase CK-MB (CK-2) CK and CKMB Interp Troponin I Total Protein Albumin Globulin Albumin/Globulin Ratio Blood Type Antibody Screen Crossmatch 09/09/16 09/09/16 09/09/16 04:10 04:10 04:10 WBC 19.6 H D RBC 3.78 L Hgb 12.6 L Hct 35.9 L MCV 95.0 MCH 33 MCHC 35.1 RDW 12.4 Plt Count 177 MPV 12.7 H Neut % (Auto) 87.2 H Lymph % (Auto) 6.0 L [place] % (Auto) 6.0 Eos % (Auto) 0.0 Baso % (Auto) 0.1 Neut # (Auto) 17.1 H Lymph # (Auto) 1.2 L [place] # (Auto) 1.2 H Eos # (Auto) 0.0 Baso # (Auto) 0.0 Immature Gran % 0.7 Nucleated RBC % 0.0 Immature Gran # 0.14 Nucleated RBCs # 0.00 ABG pH 7.423 ABG pCO2 33.6 L ABG pO2 82.2 ABG HCO3 21.5 ABG Total CO2 22.5 L ABG O2 Saturation 95.7 ABG Base Excess -2.2 Hemoglobin 13.3 L Hematocrit 39.0 L Potassium 4.3 4.1 Glucose 121 H 112 H Sodium 140 Chloride 109 H Carbon Dioxide 22 Anion Gap 13.3 BUN 16 Creatinine 1.10 GFR Calculation 98 BUN/Creatinine Ratio 14.00 POC Glucose Calculated Osmolality 280.4 Calcium 8.3 L Magnesium 2.0 Total Bilirubin 0.60 Direct Bilirubin 0.20 AST 161 H ALT 30 Alkaline Phosphatase 39 L Total Creatine Kinase CK-MB (CK-2) CK and CKMB Interp Troponin I Total Protein 5.8 L Albumin 3.3 L Globulin 2.5 Albumin/Globulin Ratio 1.3 Blood Type Antibody Screen Crossmatch 09/09/16 09/09/16 09/09/16 04:10 05:59 08:27 WBC RBC Hgb Hct MCV MCH MCHC RDW Plt Count MPV Neut % (Auto) Lymph % (Auto) [place] % (Auto) Eos % (Auto) Baso % (Auto) Neut # (Auto) Lymph # (Auto) [place] # (Auto) Eos # (Auto) Baso # (Auto) Immature Gran % Nucleated RBC % Immature Gran # Nucleated RBCs # ABG pH ABG pCO2 ABG pO2 ABG HCO3 ABG Total CO2 ABG O2 Saturation ABG Base Excess Hemoglobin Hematocrit Potassium Glucose Sodium Chloride Carbon Dioxide Anion Gap BUN Creatinine GFR Calculation BUN/Creatinine Ratio POC Glucose 125 H 131 H Calculated Osmolality Calcium Magnesium Total Bilirubin Direct Bilirubin AST ALT Alkaline Phosphatase Total Creatine Kinase 1512 H D CK-MB (CK-2) 155.2 H D CK and CKMB Interp 10.3 Troponin I 28.300 H D Total Protein Albumin Globulin Albumin/Globulin Ratio Blood Type Antibody Screen Crossmatch 09/09/16 09/09/16 12:14 15:59 WBC RBC Hgb Hct MCV MCH MCHC RDW Plt Count MPV Neut % (Auto) Lymph % (Auto) [place] % (Auto) Eos % (Auto) Baso % (Auto) Neut # (Auto) Lymph # (Auto) [place] # (Auto) Eos # (Auto) Baso # (Auto) Immature Gran % Nucleated RBC % Immature Gran # Nucleated RBCs # ABG pH ABG pCO2 ABG pO2 ABG HCO3 ABG Total CO2 ABG O2 Saturation ABG Base Excess Hemoglobin Hematocrit Potassium Glucose Sodium Chloride Carbon Dioxide Anion Gap BUN Creatinine GFR Calculation BUN/Creatinine Ratio POC Glucose 189 H Calculated Osmolality Calcium Magnesium Total Bilirubin Direct Bilirubin AST ALT Alkaline Phosphatase Total Creatine Kinase 1394 H CK-MB (CK-2) 148.2 H D CK and CKMB Interp 10.6 Troponin I 32.200 H Total Protein Albumin Globulin Albumin/Globulin Ratio Blood Type Antibody Screen Crossmatch
[2016-09-09] MEDS: MORPHINE 10 MG/1 ML VIAL IV PRN ×2 (16:50→21:13)
[2016-09-09] MEDS: INSULIN REGULAR 100 UNIT/ML SUBCUT SCH ×2 (16:51→21:14)
[2016-09-10 05:06] LABS: Basophils % 0.1 % (0.0-0.8); Hematocrit 34.1 VOL% (42.0-52.0); Hemoglobin 11.8 GM/DL (14.0-18.0); Immature Granulocytes Absolute 0.21 #; Lymphocytes # 1.4 10*3/uL (1.4-4.0); Lymphocytes % 6.8 % (21.2-54.2); Mean Corpuscular HGB Conc 34.6 GM/DL (32-36); Mean Corpuscular Hemoglobin 33 PG (27-34); Mean Corpuscular Volume 96.6 FL (87-102); Mean Platelet Volume 12.8 FL (9.6-12.0); Monocytes % 9.2 % (1.7-12.7); Neutrophils # 17.5 10*3/uL (1.4-7.4); Neutrophils % 82.9 % (38.7-73.9); Platelet Count 169 T/CUMM (130-400); Red Blood Count 3.53 MC/CUMM (3.8-5.5); Red Cell Distribution Width 12.7 % (9.3-17.3); White Blood Count 21.1 T/CUMM (4-12)
[2016-09-10 05:18] LABS: ABG Base Excess -0.2 MMOL/L (-2.5-2.5); ABG HCO3 24.3 MMOL/L (20-26); ABG Oxygen Saturation 97.2 % (95-100); ABG PCO2 37.1 MM HG (35-48); ABG PH 7.417 (7.35-7.45); ABG PO2 94.6 MM HG (80-95); ABG TCO2 19.8 MMOL/L (23-27)
[2016-09-10 05:32] LABS: Atypical Lymphocytes 1+; Band Neutrophils 1 % (0-10); Lymphocytes 8 % (20-55); Platelet Estimate Normal; Segmented Neutrophils 80 % (50-85); Total Cells Counted 100
[2016-09-10] MEDS: MORPHINE 10 MG/1 ML VIAL IV PRN (05:35)
[2016-09-10] MEDS: MIDAZOLAM 2 MG/2 ML VIAL IV PRN (06:00)
[2016-09-10 06:04] LABS: Alanine Aminotransferase 32 U/L (16-61); Albumin 2.9 G/DL (3.4-5.0); Alkaline Phosphatase 40 U/L (45-117); Aspartate Amino Transferase 118 U/L (0-37); Bilirubin,Total < 0.39 MG/DL (0.2-1.0); Blood Urea Nitrogen 26 MG/DL (7-18); Calcium 8.1 MG/DL (8.5-10.1); Glucose 131 MG/DL (74-106); Magnesium 2.4 MG/DL (1.8-2.4); Osmolality,Calculated 289.1 MOS/KG (273-304); Potassium 4.7 MMOL/L (3.5-5.1); Sodium 142 MMOL/L (136-145); Total Protein 5.6 G/DL (6.4-8.3)
[2016-09-10 06:17] LABS: CKMB % 7.8 %
[2016-09-10 06:20] LABS: Troponin I Only 21.9 NG/ML (0.00-0.045)
--- NOTE | 2016-09-10 06:27 | Cardiothoracic Progress Note ---
Cardiothoracic Subjective Interval history: Patient is awake alert and extubated. He looks and feels much better today although he still has a fair amount of chest wall discomfort. I discontinued 2 of his 3 chest tubes as he still appeared to have a small air leak. His post chest tube removal x-ray shows that the lungs are expanded. Vital signs have been stable and he has been breathing comfortably and I believe that he can be transferred to telemetry. Exam (Progress Note) - Constitutional Vitals: Period Temp Pulse Resp BP Sys/Scruggs Pulse Ox Last 24 Hr 97.6 F-99.1 F 80-100 12-24 92-137/51-87 94-100 Result/EKG - Labs CBC & BMP: 09/10/16 04:50 09/10/16 04:32 Labs: Laboratory Results - last 24 hr 09/08/16 09/08/16 09/09/16 18:42 23:14 00:55 WBC RBC Hgb Hct MCV MCH MCHC RDW Plt Count MPV Neut % (Auto) Lymph % (Auto) [place] % (Auto) Eos % (Auto) Baso % (Auto) Neut # (Auto) Lymph # (Auto) [place] # (Auto) Eos # (Auto) Baso # (Auto) Total Counted Immature Gran % Nucleated RBC % Immature Gran # Segmented Neutrophils Band Neutrophils Lymphocytes Monocytes Nucleated RBCs # Atypical Lymphocytes Platelet Estimate Pappenheimer Bodies ABG pH ABG pCO2 ABG pO2 ABG HCO3 ABG Total CO2 ABG O2 Saturation ABG Base Excess Sodium Potassium Chloride Carbon Dioxide Anion Gap BUN Creatinine GFR Calculation BUN/Creatinine Ratio Glucose POC Glucose 152 H 144 H 137 H Calculated Osmolality Calcium Magnesium Total Bilirubin Direct Bilirubin AST ALT Alkaline Phosphatase Total Creatine Kinase CK-MB (CK-2) CK and CKMB Interp Troponin I Total Protein Albumin Globulin Albumin/Globulin Ratio 09/09/16 09/09/16 09/09/16 02:18 05:59 08:27 WBC RBC Hgb Hct MCV MCH MCHC RDW Plt Count MPV Neut % (Auto) Lymph % (Auto) [place] % (Auto) Eos % (Auto) Baso % (Auto) Neut # (Auto) Lymph # (Auto) [place] # (Auto) Eos # (Auto) Baso # (Auto) Total Counted Immature Gran % Nucleated RBC % Immature Gran # Segmented Neutrophils Band Neutrophils Lymphocytes Monocytes Nucleated RBCs # Atypical Lymphocytes Platelet Estimate Pappenheimer Bodies ABG pH ABG pCO2 ABG pO2 ABG HCO3 ABG Total CO2 ABG O2 Saturation ABG Base Excess Sodium Potassium Chloride Carbon Dioxide Anion Gap BUN Creatinine GFR Calculation BUN/Creatinine Ratio Glucose POC Glucose 133 H 125 H 131 H Calculated Osmolality Calcium Magnesium Total Bilirubin Direct Bilirubin AST ALT Alkaline Phosphatase Total Creatine Kinase CK-MB (CK-2) CK and CKMB Interp Troponin I Total Protein Albumin Globulin Albumin/Globulin Ratio 09/09/16 09/09/16 09/09/16 12:14 15:59 20:08 WBC RBC Hgb Hct MCV MCH MCHC RDW Plt Count MPV Neut % (Auto) Lymph % (Auto) [place] % (Auto) Eos % (Auto) Baso % (Auto) Neut # (Auto) Lymph # (Auto) [place] # (Auto) Eos # (Auto) Baso # (Auto) Total Counted Immature Gran % Nucleated RBC % Immature Gran # Segmented Neutrophils Band Neutrophils Lymphocytes Monocytes Nucleated RBCs # Atypical Lymphocytes Platelet Estimate Pappenheimer Bodies ABG pH ABG pCO2 ABG pO2 ABG HCO3 ABG Total CO2 ABG O2 Saturation ABG Base Excess Sodium Potassium Chloride Carbon Dioxide Anion Gap BUN Creatinine GFR Calculation BUN/Creatinine Ratio Glucose POC Glucose 189 H 165 H Calculated Osmolality Calcium Magnesium Total Bilirubin Direct Bilirubin AST ALT Alkaline Phosphatase Total Creatine Kinase 1394 H CK-MB (CK-2) 148.2 H D CK and CKMB Interp 10.6 Troponin I 32.200 H Total Protein Albumin Globulin Albumin/Globulin Ratio 09/10/16 09/10/16 09/10/16 04:32 04:32 04:50 WBC 21.1 H RBC 3.53 L Hgb 11.8 L Hct 34.1 L MCV 96.6 MCH 33 MCHC 34.6 RDW 12.7 Plt Count 169 MPV 12.8 H Neut % (Auto) 82.9 H Lymph % (Auto) 6.8 L [place] % (Auto) 9.2 Eos % (Auto) 0.0 Baso % (Auto) 0.1 Neut # (Auto) 17.5 H Lymph # (Auto) 1.4 [place] # (Auto) 2.0 H Eos # (Auto) 0.0 Baso # (Auto) 0.0 Total Counted 100 Immature Gran % 1.0 Nucleated RBC % 0.0 Immature Gran # 0.21 Segmented Neutrophils 80 Band Neutrophils 1 Lymphocytes 8 L Monocytes 11 Nucleated RBCs # 0.00 Atypical Lymphocytes 1+ Platelet Estimate Normal Pappenheimer Bodies [employer] ABG pH ABG pCO2 ABG pO2 ABG HCO3 ABG Total CO2 ABG O2 Saturation ABG Base Excess Sodium 142 Potassium 4.7 Chloride 109 H Carbon Dioxide 25 Anion Gap 12.7 BUN 26 H Creatinine 1.00 GFR Calculation 110 BUN/Creatinine Ratio 26.00 H Glucose 131 H POC Glucose Calculated Osmolality 289.1 Calcium 8.1 L Magnesium 2.4 Total Bilirubin < 0.39 Direct Bilirubin 0.20 AST 118 H ALT 32 Alkaline Phosphatase 40 L Total Creatine Kinase 680 H D CK-MB (CK-2) 53.0 H D CK and CKMB Interp 7.8 Troponin I 21.900 H D Total Protein 5.6 L Albumin 2.9 L Globulin 2.7 Albumin/Globulin Ratio 1.0 L 09/10/16 04:50 WBC RBC Hgb Hct MCV MCH MCHC RDW Plt Count MPV Neut % (Auto) Lymph % (Auto) [place] % (Auto) Eos % (Auto) Baso % (Auto) Neut # (Auto) Lymph # (Auto) [place] # (Auto) Eos # (Auto) Baso # (Auto) Total Counted Immature Gran % Nucleated RBC % Immature Gran # Segmented Neutrophils Band Neutrophils Lymphocytes Monocytes Nucleated RBCs # Atypical Lymphocytes Platelet Estimate Pappenheimer Bodies ABG pH 7.417 ABG pCO2 37.1 ABG pO2 94.6 ABG HCO3 24.3 ABG Total CO2 19.8 L ABG O2 Saturation 97.2 ABG Base Excess -0.2 Sodium Potassium Chloride Carbon Dioxide Anion Gap BUN Creatinine GFR Calculation BUN/Creatinine Ratio Glucose POC Glucose Calculated Osmolality Calcium Magnesium Total Bilirubin Direct Bilirubin AST ALT Alkaline Phosphatase Total Creatine Kinase CK-MB (CK-2) CK and CKMB Interp Troponin I Total Protein Albumin Globulin Albumin/Globulin Ratio Quality Measures - VTE Contraindication to Pharmacological VTE Prophylaxis: High Risk of Bleeding Specialty Discharge - Follow Up or Referrals
[2016-09-10] MEDS ORDERED: ZALEPLON 5 MG CAPSULE PO PRN (06:29)
[2016-09-10] MEDS ORDERED: POTASSIUM CHLORIDE 20 MEQ TABLET PO PRN (06:29)
[2016-09-10] MEDS ORDERED: DEXTROSE 50% 25 GM/50 ML VIAL IV PRN ×2 (06:29)
[2016-09-10] MEDS ORDERED: MAGNESIUM HYDROXIDE SUSP 30 ML UDCUP PO PRN (06:29)
[2016-09-10] MEDS ORDERED: GLUCAGON 1 MG VIAL IM PRN ×2 (06:29)
[2016-09-10] MEDS ORDERED: MAGNESIUM SULF RIDER 2 GM in PREMIX 1 EACH IV PRN (06:29)
[2016-09-10] MEDS ORDERED: ALUMINUM/MAGNES/SIMETH MAX STR 30 ML UDCUP PO PRN (06:29)
[2016-09-10] MEDS ORDERED: MAGNESIUM SULF RIDER 4 GM in PREMIX 1 EACH IV PRN (06:29)
[2016-09-10] MEDS ORDERED: ONDANSETRON 4 MG/2 ML VIAL IV PRN (06:29)
[2016-09-10] MEDS ORDERED: oxyCODONE/ACETAMINOPHEN 5-325 MG TABLET PO PRN (06:29)
--- NOTE | 2016-09-10 06:38 | XRay Report ---
XR chest 1V portable Indication: Status post CABG Comparison: Chest x-ray 09/09/2016 Technique: Portable AP chest was performed. Findings: [place]-Mese[place] catheter has been removed. Chest otherwise demonstrates little change from comparison. Elevation of the left hemidiaphragm remains present. Minimal stranding overlying the left hemidiaphragm is noted. Impression: 1. Elevation of the left hemidiaphragm is noted. 2. Interval removal of [place]Meseret catheter. 3. Little change in the chest. 09/10/2016 6:34 AM PROCEDURE INTERPRETED AT [facility] DEPARTMENT OF RADIOLOGY Final Report Signed by: Dr. To Doll
--- NOTE | 2016-09-10 07:49 | XRay Report ---
XR chest 1V portable Indication: Chest tube removal. Comparison: Chest x-ray 09/10/2016 Technique: Portable AP chest was performed. Findings: Left-sided chest tube and mediastinal drain to the right of midline has been removed. A single mediastinal drain or chest tube remains present within the lower chest. The appearance of the lung parenchyma is stable. Elevation of the left hemidiaphragm is again demonstrated. Cardiomediastinal silhouette is stable. Impression: 1. 2 of the 3 drains have been removed. The appearance of the chest is stable. 09/10/2016 7:45 AM PROCEDURE INTERPRETED AT [facility] DEPARTMENT OF RADIOLOGY Final Report Signed by: Dr. To Doll
[2016-09-10] MEDS: INSULIN REGULAR 100 UNIT/ML SUBCUT SCH ×2 (08:17→12:05)
[2016-09-10] MEDS: ASPIRIN EC 81 MG TABLET PO SCH (08:29)
[2016-09-10] MEDS: FERROUS SULFATE 325 MG TABLET PO SCH (08:29)
[2016-09-10] MEDS: VALSARTAN 80 MG TABLET PO SCH ×2 (08:29→20:41)
[2016-09-10] MEDS: DOCUSATE SODIUM 100 MG CAPSULE PO SCH (08:30)
[2016-09-10] MEDS: PANTOPRAZOLE 40 MG TABLET PO SCH (08:30)
[2016-09-10] MEDS: CARVEDILOL 12.5 MG TABLET PO SCH ×2 (08:30→20:41)
[2016-09-10] MEDS: ROSUVASTATIN 20 MG TABLET PO SCH (08:33)
[2016-09-10] MEDS: CHLORHEXIDINE 0.12% ORAL RINSE 60 ML BOTTLE SWISH/SPIT SCH (08:35)
[2016-09-10] MEDS ORDERED: CHLORHEXIDINE 0.12% ORAL RINSE 60 ML BOTTLE SWISH/SPIT SCH (09:00)
[2016-09-10] MEDS: ACETAMINOPHEN 325 MG TABLET PO PRN (11:42)
[2016-09-10] MEDS: SODIUM CHLOR 0.45% KCL 20 MEQ 20 MEQ/1,000 ML BAG IV SCH (13:46)
[2016-09-10] MEDS: traMADol 50 MG TABLET PO PRN (13:48)
[2016-09-10] MEDS: SODIUM CHLORIDE 0.45% 1,000 ML IV SCH (15:51)
[2016-09-10] MEDS: KETOROLAC 30 MG/1 ML VIAL IV PRN (18:29)
[2016-09-11] MEDS: KETOROLAC 30 MG/1 ML VIAL IV PRN (04:15)
[2016-09-11] MEDS ORDERED: FUROSEMIDE 40 MG/4 ML VIAL IV ONE (06:00)
--- NOTE | 2016-09-11 08:28 | Cardiology Progress Note ---
Chris Slater Vanessa, RN, am scribing for, and in the presence of, Glenny Jean MD 08:28. Assessment and Plan - Time spent with patient Time spent with patient: Greater than 30 minutes (1) Status post coronary artery bypass graft Status: Acute Assessment and plan: Patient is now POD #2 status post coronary artery bypass grafting x 3. He has progressed well postoperatively without hemodynamic instability, and he will transfer to main campus medical center later today. Continue ASA, beta jany, and statin. Current Visit: Yes (2) NSTEMI (non-ST elevated myocardial infarction) Status: Resolved Assessment and plan: He is now status post CABG x 3. He is doing well at this time without further s/ s of ACS. Current Visit: Yes (3) HTN (hypertension) Status: Chronic Assessment and plan: Blood pressure is adequately controlled at this time. Continue current medication regimen. Current Visit: Yes (4) Coronary artery disease Status: Chronic Current Visit: Yes Cardiology - PN: Subj Interval history: [employer]ular [employer] Operator: NONE Mr. Vera, 51 year-old white male with history of oral tobacco use, hypertension and strong family history of CAD (brother at age 57, his father of heart attack in his late 70s) who has had intermittent episodes of chest pain over the last 5 days since lifting a heavy couch. He was transferred here from [facility] with non-STEMI. He underwent left heart catheterization which revealed three-vessel coronary artery disease that Dr. Moore felt would be best treated with bypass surgery. Dr. Be was then consulted and patient underwent CABG 09/08/16 with ANDRADE graft to LAD, SVG to diagonal, SVG to circumflex and SVG to right posterior lateral coronary artery. Extubated on POD #1 and has done well without respiratory distress. He was kept in intensive care an extra night after postoperative increase in troponin level which peaked at 32.2 (preoperatively had peaked at 12.7). Patient seen and examined in the ICU this morning. He is awake and alert and is no acute distress. Today, he was able to have 2 of 3 chest tubes discontinued. Single chest tube remains in place as it appears he still has a small air leak. Mr. Vera denies discomfort or need at this time. He does have some moderate chest wall tenderness with activity. Patient is afebrile, vitals have been stable, and he has remained in sinus rhythm. There has been no ectopy or sustained arrhythmia. He will be transferred to telemetry today. Exam (Progress Note) - Constitutional Vitals: Period Temp Pulse Resp BP Sys/Scruggs Pulse Ox Last 24 Hr 97.6 F-99.1 F 80-98 12-24 92-133/51-87 94-100 Exam: General appearance: normal weight, no acute distress - Head Head exam: Present: normal inspection, normocephalic, atraumatic. Absent: laceration, contusion, hematoma - Neck Neck exam: Present: normal inspection. - Respiratory Respiratory exam: Present: clear to auscultation bilaterally. Absent: accessory muscle use, rales, rhonchi, wheeze - Cardiovascular Cardiovascular exam: Present: regular rate and rhythm, systolic murmur. Absent : gallop, rubs, irregular rhythm, bradycardia, tachycardia - GI/Abdominal GI/Abdominal exam: Present: normal bowel sounds, soft. Absent: distended, firm , mass, tenderness - Extremities Exam Extremities exam: Present: normal capillary refill. Absent: calf tenderness, edema. Other: (bilateral lower extremity incisions with dry/intact surgical dressings) - Neurological Exam Neurological exam: Present: alert, oriented X3. grossly intact without tremor. - Psychiatric Psychiatric exam: Present: normal affect, normal mood. Absent: agitated, anxious , depressed. - Skin Skin exam: Present: normal color, warm, dry. Absent: cyanosis, diaphoresis. Other: (midsternal chest incision with dry/intact surgical dressing) Result/EKG - Labs CBC & BMP: 09/10/16 04:50 09/10/16 04:32 Lab Results: I have reviewed the past 24 hour labs Labs: Laboratory Results - last 24 hr 09/09/16 09/09/16 09/09/16 08:27 12:14 15:59 WBC RBC Hgb Hct MCV MCH MCHC RDW Plt Count MPV Neut % (Auto) Lymph % (Auto) [place] % (Auto) Eos % (Auto) Baso % (Auto) Neut # (Auto) Lymph # (Auto) [place] # (Auto) Eos # (Auto) Baso # (Auto) Total Counted Immature Gran % Nucleated RBC % Immature Gran # Segmented Neutrophils Band Neutrophils Lymphocytes Monocytes Nucleated RBCs # Atypical Lymphocytes Platelet Estimate Pappenheimer Bodies ABG pH ABG pCO2 ABG pO2 ABG HCO3 ABG Total CO2 ABG O2 Saturation ABG Base Excess Sodium Potassium Chloride Carbon Dioxide Anion Gap BUN Creatinine GFR Calculation BUN/Creatinine Ratio Glucose POC Glucose 131 H 189 H Calculated Osmolality Calcium Magnesium Total Bilirubin Direct Bilirubin AST ALT Alkaline Phosphatase Total Creatine Kinase 1394 H CK-MB (CK-2) 148.2 H D CK and CKMB Interp 10.6 Troponin I 32.200 H Total Protein Albumin Globulin Albumin/Globulin Ratio 09/09/16 09/10/16 09/10/16 20:08 04:32 04:32 WBC RBC Hgb Hct MCV MCH MCHC RDW Plt Count MPV Neut % (Auto) Lymph % (Auto) [place] % (Auto) Eos % (Auto) Baso % (Auto) Neut # (Auto) Lymph # (Auto) [place] # (Auto) Eos # (Auto) Baso # (Auto) Total Counted Immature Gran % Nucleated RBC % Immature Gran # Segmented Neutrophils Band Neutrophils Lymphocytes Monocytes Nucleated RBCs # Atypical Lymphocytes Platelet Estimate Pappenheimer Bodies ABG pH ABG pCO2 ABG pO2 ABG HCO3 ABG Total CO2 ABG O2 Saturation ABG Base Excess Sodium 142 Potassium 4.7 Chloride 109 H Carbon Dioxide 25 Anion Gap 12.7 BUN 26 H Creatinine 1.00 GFR Calculation 110 BUN/Creatinine Ratio 26.00 H Glucose 131 H POC Glucose 165 H Calculated Osmolality 289.1 Calcium 8.1 L Magnesium 2.4 Total Bilirubin < 0.39 Direct Bilirubin 0.20 AST 118 H ALT 32 Alkaline Phosphatase 40 L Total Creatine Kinase 680 H D CK-MB (CK-2) 53.0 H D CK and CKMB Interp 7.8 Troponin I 21.900 H D Total Protein 5.6 L Albumin 2.9 L Globulin 2.7 Albumin/Globulin Ratio 1.0 L 09/10/16 09/10/16 09/10/16 04:50 04:50 07:39 WBC 21.1 H RBC 3.53 L Hgb 11.8 L Hct 34.1 L MCV 96.6 MCH 33 MCHC 34.6 RDW 12.7 Plt Count 169 MPV 12.8 H Neut % (Auto) 82.9 H Lymph % (Auto) 6.8 L [place] % (Auto) 9.2 Eos % (Auto) 0.0 Baso % (Auto) 0.1 Neut # (Auto) 17.5 H Lymph # (Auto) 1.4 [place] # (Auto) 2.0 H Eos # (Auto) 0.0 Baso # (Auto) 0.0 Total Counted 100 Immature Gran % 1.0 Nucleated RBC % 0.0 Immature Gran # 0.21 Segmented Neutrophils 80 Band Neutrophils 1 Lymphocytes 8 L Monocytes 11 Nucleated RBCs # 0.00 Atypical Lymphocytes 1+ Platelet Estimate Normal Pappenheimer Bodies Coal Deliverer ABG pH 7.417 ABG pCO2 37.1 ABG pO2 94.6 ABG HCO3 24.3 ABG Total CO2 19.8 L ABG O2 Saturation 97.2 ABG Base Excess -0.2 Sodium Potassium Chloride Carbon Dioxide Anion Gap BUN Creatinine GFR Calculation BUN/Creatinine Ratio Glucose POC Glucose 135 H Calculated Osmolality Calcium Magnesium Total Bilirubin Direct Bilirubin AST ALT Alkaline Phosphatase Total Creatine Kinase CK-MB (CK-2) CK and CKMB Interp Troponin I Total Protein Albumin Globulin Albumin/Globulin Ratio - Diagnostic Findings Procedure: Chest x-ray: image reviewed by me, report reviewed by me - EKG EKG results: interpreted by me, no acute changes EKG shows: sinus rhythm Quality Measures - VTE Contraindication to Pharmacological VTE Prophylaxis: High Risk of Bleeding Specialty Discharge - Follow Up or Referrals Ted Slater Jennifer, MD, personally performed the services described in this documentation, ascribed by Yanely Perez RN in my presence, and it is both accurate and complete 828 .
--- NOTE | 2016-09-11 08:43 | Cardiothoracic Progress Note ---
Cardiothoracic Subjective Interval history: Patient is doing well. Vital signs have been stable and he is breathing comfortably. There is no further air leak from his chest tube and so his remaining chest tube has been discontinued. He is going to gradually begin increasing his activity according to routine postoperative protocol. Overall his progress seems satisfactory. Exam (Progress Note) - Constitutional Vitals: Period Temp Pulse Resp BP Sys/Scruggs Pulse Ox Last 24 Hr 96.3 F-98.4 F 73-88 16-23 99-123/68-95 95-99 Result/EKG - Labs CBC & BMP: 09/10/16 04:50 09/10/16 04:32 Labs: Laboratory Results - last 24 hr 09/07/16 09/10/16 09/10/16 04:35 11:48 16:22 POC Glucose 115 H 121 H Blood Type A POSITIVE Antibody Screen Negative Crossmatch See Detail 09/10/16 09/10/16 09/11/16 19:51 23:58 03:38 POC Glucose 104 187 H 127 H Blood Type Antibody Screen Crossmatch Quality Measures - VTE Contraindication to Pharmacological VTE Prophylaxis: High Risk of Bleeding Specialty Discharge - Follow Up or Referrals
[2016-09-11] MEDS: SODIUM CHLOR 0.45% KCL 20 MEQ 20 MEQ/1,000 ML BAG IV SCH (09:05)
[2016-09-11] MEDS: ASPIRIN EC 81 MG TABLET PO SCH (09:34)
[2016-09-11] MEDS: DOCUSATE SODIUM 100 MG CAPSULE PO SCH (09:35)
[2016-09-11] MEDS: CARVEDILOL 12.5 MG TABLET PO SCH ×2 (09:35→20:20)
[2016-09-11] MEDS: ROSUVASTATIN 20 MG TABLET PO SCH (09:36)
[2016-09-11] MEDS: PANTOPRAZOLE 40 MG TABLET PO SCH (09:36)
[2016-09-11] MEDS: VALSARTAN 80 MG TABLET PO SCH ×2 (09:36→20:20)
[2016-09-11] MEDS: FERROUS SULFATE 325 MG TABLET PO SCH (09:38)
--- NOTE | 2016-09-11 10:10 | XRay Report ---
Exam: XR chest 1V portable Indication: Chest tube placement/removal Comparison study: 09/11/2016 at 6:15 AM Findings: Cardiac silhouette and a soft structures appear stable from prior. Median sternotomy wiring is noted. Right-sided central venous catheter is in similar position. There are patchy left basilar opacities and mild elevation of the left hemidiaphragm, which appears similar to prior. There is no pneumothorax. Osseous structures appear stable Impression: No significant change. PROCEDURE INTERPRETED AT [facility] DEPARTMENT OF RADIOLOGY Final Report Signed by: Hoang Swanson
[2016-09-11 10:47] LABS: Basophils % 0.1 % (0.0-0.8); Eosinophils % 0.2 % (0.00-10.9); Hematocrit 37.9 VOL% (42.0-52.0); Hemoglobin 12.7 GM/DL (14.0-18.0); Immature Granulocytes % 1.5 %; Immature Granulocytes Absolute 0.28 #; Lymphocytes % 15.5 % (21.2-54.2); Mean Corpuscular HGB Conc 33.5 GM/DL (32-36); Mean Corpuscular Hemoglobin 33 PG (27-34); Mean Corpuscular Volume 98.7 FL (87-102); Mean Platelet Volume 12.1 FL (9.6-12.0); Monocytes # 2.2 10*3/uL (0.11-0.8); Monocytes % 11.7 % (1.7-12.7); Neutrophils # 13.6 10*3/uL (1.4-7.4); Platelet Count 230 T/CUMM (130-400); Red Blood Count 3.84 MC/CUMM (3.8-5.5); Red Cell Distribution Width 12.6 % (9.3-17.3); White Blood Count 19.1 T/CUMM (4-12)
[2016-09-11 11:32] LABS: Albumin 3.1 G/DL (3.4-5.0); Bilirubin,Direct 0.2 MG/DL (0.0-0.20); Bilirubin,Indirect 0.3 MG/DL (0.0-1.0); Bilirubin,Total 0.5 MG/DL (0.2-1.0); Calcium 8.3 MG/DL (8.5-10.1); Magnesium 2.5 MG/DL (1.8-2.4); Osmolality,Calculated 287.3 MOS/KG (273-304); Potassium 3.9 MMOL/L (3.5-5.1)
[2016-09-11 11:33] LABS: Troponin I Only 19.5 NG/ML (0.00-0.045)
--- NOTE | 2016-09-11 12:06 | XRay Report ---
Exam: XR chest 1V portable Indication: CABG, shortness of breath Comparison study: 09/10/2016 Findings: Cardiac silhouette is enlarged, similar to prior. Right-sided central venous catheter is in similar position. There is no pneumothorax. There is similar elevation of the left hemidiaphragm with basilar opacities may represent atelectasis and/or infiltrate/pleural fluid. Impression: Similar mild cardiomegaly and left basilar opacities may represent atelectasis/infiltrates and trace pleural effusion. PROCEDURE INTERPRETED AT [facility] DEPARTMENT OF RADIOLOGY Final Report Signed by: Hoang Swanson
--- NOTE | 2016-09-11 12:28 | Cardiology Progress Note ---
Assessment and Plan (1) Status post coronary artery bypass graft Status: Acute Assessment and plan: Patient is now POD #3 status post coronary artery bypass grafting x 3. He has progressed well postoperatively without hemodynamic instability, and he will transfer to [facility] later today. Continue ASA, beta jany, and statin. Current Visit: Yes (2) NSTEMI (non-ST elevated myocardial infarction) Status: Resolved Assessment and plan: He is now status post CABG x 3. He is doing well at this time without further s/ s of ACS. Current Visit: Yes (3) HTN (hypertension) Status: Chronic Assessment and plan: Blood pressure is adequately controlled at this time. Continue current medication regimen. Current Visit: Yes (4) Coronary artery disease Status: Chronic Assessment and plan: He is scheduled to undergo coronary artery bypass grafting tomorrow with Dr. Be. Current Visit: Yes Cardiology - PN: Subj Interval history: Patient underwent CABG 09/08/16 with ANDRADE graft to LAD, SVG to diagonal, SVG to circumflex and SVG to right posterior lateral coronary artery. He is doing well postoperatively, was transferred upstairs. He denies any chest pain or shortness of breath. Exam (Progress Note) - Constitutional Vitals: Period Temp Pulse Resp BP Sys/Scruggs Pulse Ox Last 24 Hr 96.3 F-98.4 F 73-88 16-20 99-123/68-84 95-98 Exam: General appearance: normal weight, no acute distress - Head Head exam: Present: normal inspection, normocephalic, atraumatic. Absent: laceration, contusion, hematoma - Neck Neck exam: Present: normal inspection. - Respiratory Respiratory exam: Present: clear to auscultation bilaterally. Absent: accessory muscle use, rales, rhonchi, wheeze - Cardiovascular Cardiovascular exam: Present: regular rate and rhythm, systolic murmur. Absent : gallop, rubs, irregular rhythm, bradycardia, tachycardia - GI/Abdominal GI/Abdominal exam: Present: normal bowel sounds, soft. Absent: distended, firm , mass, tenderness - Extremities Exam Extremities exam: Present: normal capillary refill. Absent: calf tenderness, edema. Other: (bilateral lower extremity incisions with dry/intact surgical dressings) - Neurological Exam Neurological exam: Present: alert, oriented X3. grossly intact without tremor. - Psychiatric Psychiatric exam: Present: normal affect, normal mood. Absent: agitated, anxious , depressed. - Skin Skin exam: Present: normal color, warm, dry. Absent: cyanosis, diaphoresis. Other: (midsternal chest incision with dry/intact surgical dressing) Result/EKG - Labs CBC & BMP: 09/11/16 Unknown 09/11/16 Unknown Lab Results: I have reviewed the past 24 hour labs Labs: Laboratory Results - last 24 hr 09/07/16 09/10/16 09/10/16 04:35 16:22 19:51 WBC RBC Hgb Hct MCV MCH MCHC RDW Plt Count MPV Neut % (Auto) Lymph % (Auto) [place] % (Auto) Eos % (Auto) Baso % (Auto) Neut # (Auto) Lymph # (Auto) [place] # (Auto) Eos # (Auto) Baso # (Auto) Immature Gran % Nucleated RBC % Immature Gran # Nucleated RBCs # Sodium Potassium Chloride Carbon Dioxide Anion Gap BUN Creatinine GFR Calculation BUN/Creatinine Ratio Glucose POC Glucose 121 H 104 Calculated Osmolality Calcium Magnesium Total Bilirubin Direct Bilirubin Indirect Bilirubin AST ALT Alkaline Phosphatase Total Creatine Kinase CK-MB (CK-2) CK and CKMB Interp Troponin I Total Protein Albumin Globulin Albumin/Globulin Ratio Blood Type A POSITIVE Antibody Screen Negative Crossmatch See Detail 09/10/16 09/11/16 09/11/16 23:58 03:38 Unknown WBC 19.1 H RBC 3.84 Hgb 12.7 L Hct 37.9 L MCV 98.7 MCH 33 MCHC 33.5 RDW 12.6 Plt Count 230 D MPV 12.1 H Neut % (Auto) 71.0 Lymph % (Auto) 15.5 L [place] % (Auto) 11.7 Eos % (Auto) 0.2 Baso % (Auto) 0.1 Neut # (Auto) 13.6 H Lymph # (Auto) 3.0 [place] # (Auto) 2.2 H Eos # (Auto) 0.0 Baso # (Auto) 0.0 Immature Gran % 1.5 Nucleated RBC % 0.0 Immature Gran # 0.28 Nucleated RBCs # 0.00 Sodium Potassium Chloride Carbon Dioxide Anion Gap BUN Creatinine GFR Calculation BUN/Creatinine Ratio Glucose POC Glucose 187 H 127 H Calculated Osmolality Calcium Magnesium Total Bilirubin Direct Bilirubin Indirect Bilirubin AST ALT Alkaline Phosphatase Total Creatine Kinase CK-MB (CK-2) CK and CKMB Interp Troponin I Total Protein Albumin Globulin Albumin/Globulin Ratio Blood Type Antibody Screen Crossmatch 09/11/16 Unknown WBC RBC Hgb Hct MCV MCH MCHC RDW Plt Count MPV Neut % (Auto) Lymph % (Auto) [place] % (Auto) Eos % (Auto) Baso % (Auto) Neut # (Auto) Lymph # (Auto) [place] # (Auto) Eos # (Auto) Baso # (Auto) Immature Gran % Nucleated RBC % Immature Gran # Nucleated RBCs # Sodium 141 Potassium 3.9 Chloride 104 Carbon Dioxide 29 Anion Gap 11.9 BUN 29 H Creatinine 1.20 GFR Calculation 88 BUN/Creatinine Ratio 24.00 H Glucose 120 H POC Glucose Calculated Osmolality 287.3 Calcium 8.3 L Magnesium 2.5 H Total Bilirubin 0.50 Direct Bilirubin 0.20 Indirect Bilirubin 0.3 AST 56 H ALT 38 Alkaline Phosphatase 48 Total Creatine Kinase 312 H D CK-MB (CK-2) 9.4 H D CK and CKMB Interp 3.0 Troponin I 19.500 H Total Protein 6.0 L Albumin 3.1 L Globulin 2.9 Albumin/Globulin Ratio 1.0 L Blood Type Antibody Screen Crossmatch Quality Measures - VTE Contraindication to Pharmacological VTE Prophylaxis: High Risk of Bleeding Specialty Discharge - Follow Up or Referrals
[2016-09-11] MEDS: ACETAMINOPHEN 325 MG TABLET PO PRN ×2 (13:19→18:01)
[2016-09-12] MEDS: KETOROLAC 30 MG/1 ML VIAL IV PRN (01:44)
[2016-09-12 05:16] LABS: Basophils % 0.1 % (0.0-0.8); Eosinophils # 0.1 10*3/uL (0.0-0.87); Eosinophils % 0.6 % (0.00-10.9); Hematocrit 34.6 VOL% (42.0-52.0); Hemoglobin 11.6 GM/DL (14.0-18.0); Immature Granulocytes % 1.4 %; Immature Granulocytes Absolute 0.17 #; Lymphocytes # 2.3 10*3/uL (1.4-4.0); Lymphocytes % 18.1 % (21.2-54.2); Mean Corpuscular HGB Conc 33.5 GM/DL (32-36); Mean Corpuscular Hemoglobin 33 PG (27-34); Mean Corpuscular Volume 98.6 FL (87-102); Monocytes # 1.4 10*3/uL (0.11-0.8); Monocytes % 11.4 % (1.7-12.7); Neutrophils # 8.6 10*3/uL (1.4-7.4); Neutrophils % 68.4 % (38.7-73.9); Platelet Count 204 T/CUMM (130-400); Red Blood Count 3.51 MC/CUMM (3.8-5.5); Red Cell Distribution Width 12.4 % (9.3-17.3); White Blood Count 12.5 T/CUMM (4-12)
[2016-09-12 05:48] LABS: Alanine Aminotransferase 38 U/L (16-61); Albumin 2.6 G/DL (3.4-5.0); Alkaline Phosphatase 44 U/L (45-117); Aspartate Amino Transferase 34 U/L (0-37); Bilirubin,Indirect 0.6 MG/DL (0.0-1.0); Blood Urea Nitrogen 25 MG/DL (7-18); Calcium 8.1 MG/DL (8.5-10.1); Glucose 140 MG/DL (74-106); Magnesium 2.5 MG/DL (1.8-2.4); Osmolality,Calculated 286.3 MOS/KG (273-304); Potassium 3.9 MMOL/L (3.5-5.1); Sodium 141 MMOL/L (136-145); Total Protein 5.2 G/DL (6.4-8.3)
--- NOTE | 2016-09-12 08:03 | Cardiothoracic Progress Note ---
Cardiothoracic Subjective Interval history: Patient looks and feels fine. He is less sore and is able to get up and ambulate on his own. His vital signs have been stable and he is breathing comfortably. His chest x-ray looks some better. He did have a troponin reported as 30 this morning which is in conflict with a declining total CPK and CK-MB. There is no clinical indication of cardiac ischemia. I suspect that the troponin level may be in error. We will check it again in the morning. Overall his progress is satisfactory and is approaching discharge. Exam (Progress Note) - Constitutional Vitals: Period Temp Pulse Resp BP Sys/Scruggs Pulse Ox Last 24 Hr 96.4 F-98.7 F 84-88 16-20 102-124/66-83 95-99 Result/EKG - Labs CBC & BMP: 09/12/16 04:23 09/12/16 04:23 Labs: Laboratory Results - last 24 hr 09/11/16 09/11/16 09/12/16 Unknown Unknown 04:23 WBC 19.1 H 12.5 H D RBC 3.84 3.51 L Hgb 12.7 L 11.6 L Hct 37.9 L 34.6 L MCV 98.7 98.6 MCH 33 33 MCHC 33.5 33.5 RDW 12.6 12.4 Plt Count 230 D 204 MPV 12.1 H 13.0 H Neut % (Auto) 71.0 68.4 Lymph % (Auto) 15.5 L 18.1 L [place] % (Auto) 11.7 11.4 Eos % (Auto) 0.2 0.6 Baso % (Auto) 0.1 0.1 Neut # (Auto) 13.6 H 8.6 H Lymph # (Auto) 3.0 2.3 [place] # (Auto) 2.2 H 1.4 H Eos # (Auto) 0.0 0.1 Baso # (Auto) 0.0 0.0 Immature Gran % 1.5 1.4 Nucleated RBC % 0.0 0.0 Immature Gran # 0.28 0.17 Nucleated RBCs # 0.00 0.00 Sodium 141 Potassium 3.9 Chloride 104 Carbon Dioxide 29 Anion Gap 11.9 BUN 29 H Creatinine 1.20 GFR Calculation 88 BUN/Creatinine Ratio 24.00 H Glucose 120 H Calculated Osmolality 287.3 Calcium 8.3 L Magnesium 2.5 H Total Bilirubin 0.50 Direct Bilirubin 0.20 Indirect Bilirubin 0.3 AST 56 H ALT 38 Alkaline Phosphatase 48 Total Creatine Kinase 312 H D CK-MB (CK-2) 9.4 H D CK and CKMB Interp 3.0 Troponin I 19.500 H Total Protein 6.0 L Albumin 3.1 L Globulin 2.9 Albumin/Globulin Ratio 1.0 L 09/12/16 04:23 WBC RBC Hgb Hct MCV MCH MCHC RDW Plt Count MPV Neut % (Auto) Lymph % (Auto) [place] % (Auto) Eos % (Auto) Baso % (Auto) Neut # (Auto) Lymph # (Auto) [place] # (Auto) Eos # (Auto) Baso # (Auto) Immature Gran % Nucleated RBC % Immature Gran # Nucleated RBCs # Sodium 141 Potassium 3.9 Chloride 105 Carbon Dioxide 26 Anion Gap 13.9 BUN 25 H Creatinine 1.00 GFR Calculation 105 BUN/Creatinine Ratio 25.00 H Glucose 140 H Calculated Osmolality 286.3 Calcium 8.1 L Magnesium 2.5 H Total Bilirubin 0.70 Direct Bilirubin 0.10 Indirect Bilirubin 0.6 AST 34 ALT 38 Alkaline Phosphatase 44 L Total Creatine Kinase 197 D CK-MB (CK-2) 3.3 D CK and CKMB Interp Troponin I 30.000 H D Total Protein 5.2 L Albumin 2.6 L Globulin 2.6 Albumin/Globulin Ratio 1.0 L Quality Measures - VTE Contraindication to Pharmacological VTE Prophylaxis: High Risk of Bleeding Specialty Discharge - Follow Up or Referrals
[2016-09-12] MEDS: ASPIRIN EC 81 MG TABLET PO SCH (09:49)
[2016-09-12] MEDS: PANTOPRAZOLE 40 MG TABLET PO SCH (09:51)
[2016-09-12] MEDS: ROSUVASTATIN 20 MG TABLET PO SCH (09:51)
[2016-09-12] MEDS: CARVEDILOL 12.5 MG TABLET PO SCH ×2 (09:51→21:15)
[2016-09-12] MEDS: DOCUSATE SODIUM 100 MG CAPSULE PO SCH (09:51)
[2016-09-12] MEDS: VALSARTAN 80 MG TABLET PO SCH ×2 (09:51→21:15)
[2016-09-12] MEDS: FERROUS SULFATE 325 MG TABLET PO SCH (09:57)
[2016-09-12] MEDS: ACETAMINOPHEN 325 MG TABLET PO PRN ×2 (10:30→17:49)
--- NOTE | 2016-09-12 11:52 | Cardiology Progress Note ---
Assessment and Plan (1) Status post coronary artery bypass graft Status: Acute Assessment and plan: Patient is now POD #4 status post coronary artery bypass grafting x 3. He has progressed well postoperatively without hemodynamic instability. Continue ASA, beta jany, and statin. Current Visit: Yes (2) NSTEMI (non-ST elevated myocardial infarction) Status: Resolved Assessment and plan: He is now status post CABG x 3. He is doing well at this time without further s/ s of ACS. Current Visit: Yes (3) HTN (hypertension) Status: Chronic Assessment and plan: Blood pressure is adequately controlled at this time. Continue current medication regimen. Current Visit: Yes (4) Coronary artery disease Status: Chronic Current Visit: Yes Cardiology - PN: Subj Interval history: [employer]: Dr. Moore Patient underwent CABG 09/08/16 with ANDRADE graft to LAD, SVG to diagonal, SVG to circumflex and SVG to right posterior lateral coronary artery. He is doing well postoperatively. He denies any chest pain or shortness of breath. Exam (Progress Note) - Constitutional Vitals: Period Temp Pulse Resp BP Sys/Scruggs Pulse Ox Last 24 Hr 96.4 F-98.7 F 84-88 16-20 102-124/66-83 95-99 Exam: General appearance: normal weight, no acute distress - Head Head exam: Present: normal inspection, normocephalic, atraumatic. Absent: laceration, contusion, hematoma - Neck Neck exam: Present: normal inspection. - Respiratory Respiratory exam: Present: clear to auscultation bilaterally. Absent: accessory muscle use, rales, rhonchi, wheeze - Cardiovascular Cardiovascular exam: Present: regular rate and rhythm, systolic murmur. Absent : gallop, rubs, irregular rhythm, bradycardia, tachycardia - GI/Abdominal GI/Abdominal exam: Present: normal bowel sounds, soft. Absent: distended, firm , mass, tenderness - Extremities Exam Extremities exam: Present: normal capillary refill. Absent: calf tenderness, edema. Other: (bilateral lower extremity incisions with dry/intact surgical dressings) - Neurological Exam Neurological exam: Present: alert, oriented X3. grossly intact without tremor. - Psychiatric Psychiatric exam: Present: normal affect, normal mood. Absent: agitated, anxious , depressed. - Skin Skin exam: Present: normal color, warm, dry. Absent: cyanosis, diaphoresis. Other: (midsternal chest incision with dry/intact surgical dressing) Result/EKG - Labs CBC & BMP: 09/12/16 04:23 09/12/16 04:23 Lab Results: I have reviewed the past 24 hour labs Labs: Laboratory Results - last 24 hr 09/12/16 09/12/16 04:23 04:23 WBC 12.5 H D RBC 3.51 L Hgb 11.6 L Hct 34.6 L MCV 98.6 MCH 33 MCHC 33.5 RDW 12.4 Plt Count 204 MPV 13.0 H Neut % (Auto) 68.4 Lymph % (Auto) 18.1 L [place] % (Auto) 11.4 Eos % (Auto) 0.6 Baso % (Auto) 0.1 Neut # (Auto) 8.6 H Lymph # (Auto) 2.3 [place] # (Auto) 1.4 H Eos # (Auto) 0.1 Baso # (Auto) 0.0 Immature Gran % 1.4 Nucleated RBC % 0.0 Immature Gran # 0.17 Nucleated RBCs # 0.00 Sodium 141 Potassium 3.9 Chloride 105 Carbon Dioxide 26 Anion Gap 13.9 BUN 25 H Creatinine 1.00 GFR Calculation 105 BUN/Creatinine Ratio 25.00 H Glucose 140 H Calculated Osmolality 286.3 Calcium 8.1 L Magnesium 2.5 H Total Bilirubin 0.70 Direct Bilirubin 0.10 Indirect Bilirubin 0.6 AST 34 ALT 38 Alkaline Phosphatase 44 L Total Creatine Kinase 197 D CK-MB (CK-2) 3.3 D Troponin I 30.000 H D Total Protein 5.2 L Albumin 2.6 L Globulin 2.6 Albumin/Globulin Ratio 1.0 L Quality Measures - VTE Contraindication to Pharmacological VTE Prophylaxis: High Risk of Bleeding Specialty Discharge - Follow Up or Referrals
--- NOTE | 2016-09-12 13:54 | XRay Report ---
Exam: XR chest 1V portable Indication: Shortness of breath Comparison study: 09/11/2016 at 8:37 AM Findings: Cardiac silhouette is mildly enlarged, similar to prior. Minimal residual perihilar and left basilar opacities appear slightly decreased from prior likely representing atelectasis and small left pleural effusion. Right sided central venous catheter is in similar position. Median sternotomy wiring is again noted. There is no pneumothorax. Osseous structures appear stable. Impression: Similar mild cardiomegaly with slight improved aeration within the lung bases and residual left basilar atelectasis and small pleural effusion. PROCEDURE INTERPRETED AT [facility] DEPARTMENT OF RADIOLOGY Final Report Signed by: Hoang Swanson
[2016-09-12] MEDS: traMADol 50 MG TABLET PO PRN (21:16)
--- NOTE | 2016-09-13 06:21 | Discharge Summary ---
Hospital Course - Hospital Course Hospital Course: History of present illness: Patient is 51-year-old man who presented to the emergency room with a complaint of recent onset chest discomfort which had become increasingly severe. The chest pain was felt to be ischemic heart pain and the patient was seen urgently by cardiology who recommended cardiac catheterization revealing severe three-vessel coronary disease. Patient was admitted for stabilization and for coronary bypass surgery. Past medical history review of systems social history and family history are documented in the admission note. Hospital course: Patient was taken to surgery and four-vessel bypass grafting was performed with graft to the anterior descending coronary artery using the left internal mammary artery and grafts to the diagonal circumflex marginal and right posterior lateral coronary arteries. Patient's postoperative course was essentially uncomplicated and he was discharged home on the fifth postoperative day with instructions to return for follow-up in 1 month. Discharge medications are listed below. Specialty Discharge - Follow Up or Referrals Follow up with: Silviano Be MD [Physician] - 1 Month Discharge Plan - Discharge Data Condition at Discharge: Stable Discharge Diet: advance to your usual diet Activity: resume usual activities as tolerated Hygiene: no restrictions Weight Bearing at Discharge: full weight bearing Driving: not for (10 days) - Discharge Medications New Carvedilol [Coreg] 12.5 mg PO BID #60 tablet Aspirin EC Tab 81 mg PO DAILY #60 tablet Rosuvastatin [Crestor] 40 mg PO DAILY #30 tablet Valsartan [Diovan] 40 mg PO BID #60 tablet - Follow Up or Referral - Forms/Instructions Instructions: Myocardial Infarction (GEN), Coronary Artery Disease (GEN), Coronary Artery Bypass Graft (DC), Left Heart Catheterization (DC), Heart Healthy Diet (GEN), Sternal Precautions (GEN) Exam - Constitutional Vitals: Period Temp Pulse Resp BP Sys/Scruggs Pulse Ox Last 24 Hr 97.6 F-99.1 F 83-88 16-20 111-149/63-78 90-98 Discharge Results Procedures and tests throughout hospitalization: Pending Orders 09/07/16 04:35 Fresh Frozen Plasma IN AM Red Blood Cells Leuko Red IN AM Single Donor Platelets IN AM Type and Screen Routine 09/13/16 04:00 Troponin,CKMB & Ck Total IN AM 09/14/16 04:00 XR chest 2V IN AM Bilirubin Profile Adult IN AM Comp Blood Count Auto Diff IN AM Comprehensive Metabolic Panel IN AM Hepatic (Liver) Panel IN AM Magnesium IN AM Troponin,CKMB & Ck Total IN AM 09/15/16 04:00 XR chest 2V IN AM Bilirubin Profile Adult IN AM Comp Blood Count Auto Diff IN AM Comprehensive Metabolic Panel IN AM Hepatic (Liver) Panel IN AM Magnesium IN AM Troponin,CKMB & Ck Total IN AM DS: Provider Date of admission: 09/03/16 00:08 Primary care physician: . No PCP Attending physician on admission: Galileo Cardozo Consults: 09/04/16 09:19 Consult to Dietitian [CONS] Routine Reason for Dietitian: Other Consult Comment: low salt, low cholesterol, diet 09/10/16 06:29 Consult to Cardiac Rehabilitation [CONS] Routine Reason for Cardiac Rehabilitation: Other Consult Comment: Post CABG/heart surgery Consult to [facility], Educator [CONS] Routine Reason for Religion Teacher: Diabetes Education Initial Insulin Education Consult Comment: insulin education Consult to Dietitian [CONS] Routine Reason for Dietitian: Dietary Consult Consult Comment: Cardiac, low salt, low cholesterol diet Consult to Physical Therapy [CONS] Routine Reason for Physical Therapy: Other Consult Comment: CV Rehab Consult to Physician [CONS] Routine Comment: Management of diabetes Consulting Provider: Consult to Specialist Group: Hospitalist Discharging clinician: Silvinao Be MD Expected date of discharge: 09/13/16
[2016-09-13] MEDS: PANTOPRAZOLE 40 MG TABLET PO SCH (09:41)
[2016-09-13] MEDS: ASPIRIN EC 81 MG TABLET PO SCH (09:42)
[2016-09-13] MEDS: CARVEDILOL 12.5 MG TABLET PO SCH (09:42)
[2016-09-13] MEDS: VALSARTAN 80 MG TABLET PO SCH (09:51)
[2016-09-13] MEDS: ROSUVASTATIN 20 MG TABLET PO SCH (09:51)
[2016-09-13] MEDS: DOCUSATE SODIUM 100 MG CAPSULE PO SCH (09:52)
[2016-09-13] MEDS: ACETAMINOPHEN 325 MG TABLET PO PRN (09:54)
[2016-09-13] MEDS: FERROUS SULFATE 325 MG TABLET PO SCH (10:18)
[2016-09-13 11:45] VITALS: BP 94/62
== END 2016-09-13 12:20 | disposition home or self-care (01) | DRG 234 ==
LOC: N.ED 23:06 → N.EDINP 09-03 00:08 → N.TELES 09-03 01:21 → N.CC 09-03 11:28 → N.TELEN 09-04 15:04 → N.CVR 09-08 09:15 → N.ICU 09-09 10:55 → N.TELES 09-10 15:35
PROVIDERS: ADMIT Internal Medicine Cardiovascular Disease; ATTEND Internal Medicine Cardiovascular Disease
PROC: CLCCHCL (ICD-10-PCS; 2016-09-03 09:45)